=== PATIENT | female | born 1965 | race African-American/Black ===

== ENCOUNTER → 2019-10-25 15:30 | Outpatient (CLI) | payer OTHER, SELFPAY ==
--- NOTE | ~2019-10-25 | MM_ITS ---
EXAMINATION: MM screening tre BI w mónica HISTORY: Screening TECHNIQUE: Craniocaudal and mediolateral oblique 3-D tomosynthesis images were obtained and synthetic 2-D images were generated. CAD analysis was submitted and interpreted. COMPARISON: Comparison to multiple prior studies sequentially, with oldest reviewed study dated 06/09. BREAST PARENCHYMAL COMPOSITION: There are scattered areas of fibroglandular density. FINDINGS: There is no evidence of suspicious mass, calcification, or architectural distortion to sugg est malignancy in either breast. There has been no suspicious interval change. IMPRESSION: 1. No mammographic evidence of malignancy. 2. Recommend routine screening mammography in one year. BI-RADS Category 1: Negative Reviewed, dictated and finalized at location A.
== END ==
PROVIDERS: Visit Provider Nurse Practitioner
DX: Z12.31 Encounter for screening mammogram for malignant neoplasm of breast (principal)
CPT/HCPCS: 77063; 77067

== ENCOUNTER → 2020-11-16 12:16 | Outpatient (CLI) | payer OTHER, SELFPAY ==
--- NOTE | ~2020-11-16 | MM_ITS ---
EXAMINATION: MM screening [facility] BI w mónica HISTORY: Screening mammogram TECHNIQUE: Craniocaudal and mediolateral oblique 3-D tomosynthesis images were obtained and synthetic 2-D images were generated. CAD analysis was submitted and interpreted. COMPARISON: 10/25/2019, 07/06/2018, 07/04/2017 BREAST PARENCHYMAL COMPOSITION: There are scattered areas of fibroglandular density. FINDINGS: Stable bilateral breast masses are consistent with benign findings. There is no evidence of suspicious mass, calcification, or architectural distortion to suggest malignancy in either breast. There has been no suspicious interval change. IMPRESSION: 1. No mammographic evidence of malignancy. 2. Recommend routine screening mammography in one year. BI-RADS Category 2: Benign finding(s). Reviewed, dictated and finalized at location A.
== END ==
PROVIDERS: PCP Nurse Practitioner; Visit Provider Nurse Practitioner
DX: Z12.31 Encounter for screening mammogram for malignant neoplasm of breast (principal)
CPT/HCPCS: 77063; 77067

== ENCOUNTER → 2021-11-23 09:42 | Outpatient (CLI) | payer OTHER, SELFPAY ==
--- NOTE | ~2021-11-23 | MM_ITS ---
EXAMINATION: MM screening tre BI w mónica HISTORY: Screening mammogram TECHNIQUE: Craniocaudal and mediolateral oblique 3-D tomosynthesis images were obtained and synthetic 2-D images were generated. CAD analysis was submitted and interpreted. COMPARISON: 11/16/2020, 10/2019, 07/06/2018, 07/04/2017 bilateral screening mammogram examinations BREAST PARENCHYMAL COMPOSITION: The breasts are almost entirely fatty. FINDINGS: There is no evidence of suspicious mass, calcification, or architectural distortion to sugg est malignancy in either breast. There has been no suspicious interval change. IMPRESSION: 1. No mammographic evidence of malignancy. 2. Recommend routine screening mammography in one year. BI-RADS Category 1: Negative Reviewed, dictated and finalized at location B.
== END ==
PROVIDERS: PCP Nurse Practitioner; Visit Provider Nurse Practitioner
DX: Z12.31 Encounter for screening mammogram for malignant neoplasm of breast (principal)
CPT/HCPCS: 77063; 77067

== ENCOUNTER 2022-03-20 15:03 | Emergency (ER) | payer OTHER, SELFPAY ==
[2022-03-20 15:13] VITALS: BP 153/97; PULSE 101; RESP 16; TEMP 37.1; O2SAT 99
--- NOTE | 2022-03-20 15:25 | ED.EYEPROB ---
HPI - Eye Problem General Chief complaint: Eye Problems Stated complaint: Left Eye Irritation Time Seen by Provider: 03/20/22 15:15 Source: patient Mode of arrival: ambulatory Limitations: no limitations History of Present Illness HPI Narrative: Elvia is a 56-year-old female patient presenting to clinic today with complaints of left eye irritation x1 day. She reports the symptoms began this morning. She reports some burning with the eye but denies any known discharge coming from the eye. She denies any known injury. Related Data Home Medications Medication Instructions Recorded Confirmed amlodipine 10 mg tablet mg 03/20/22 blood sugar diagnostic (OneTouch 03/20/22 03/20/22 Ultra Test strips) dapagliflozin 10 mg-metformin ER PO 03/20/22 1,000 mg tablet,extended release 24hr (Xigduo XR) fluticasone 100 mcg-salmeterol 50 inhalation 03/20/22 mcg/dose blistr powdr for inhalation (Advair Diskus) lancets 33 gauge (OneTouch Delica 03/20/22 03/20/22 Plus Lancet) metformin 1,000 mg tablet mg 03/20/22 metoprolol tartrate 25 mg tablet mg 03/20/22 semaglutide 0.25 mg or 0.5 mg (2 mg subcut 03/20/22 mg/1.5 mL) subcutaneous pen injector (Ozempic) Allergies Allergy/AdvReac Type Severity Reaction Status Date / Time lisinopril Allergy Severe Anaphylactic Verified 03/20/22 15:24 Shock Penicillins Allergy Unknown Other Verified 03/20/22 15:24 Review of Systems Review of Systems: Pertinent positives per HPI. Patient denies any fever, chills, rash, headache, visual changes, dizziness, cough, runny nose, sore throat, shortness of breath, chest pain, palpitations, nausea, vomiting, diarrhea, constipation, abdominal pain, or any urinary issues. [facility] Family History Family History Sibling Patient's brother is in good health Family history of gynecological problem Mother Family history of arthritis Social History Social History (System 04/20/19 @ 13:08 by Guillermina Erickson) Smoking status: Never smoker Alcohol intake: never Comments At the time of my signature, I reviewed and agree with the nursing past medical, surgical, social, and family history. There is no relevant family history pertinent to the patient complaint. Exam Narrative: General: Well-developed, well nourished, in no apparent distress Head: Normocephalic, atraumatic Eyes: Pupils equally round and reactive to light bilaterally, EOM intact, right sclera and conjunctive clear, left sclera and conjunctiva injected and red ,no discharge, lid swelling to the left eye Ears: TMs intact and clear, ear canals clear, no drainage, grossly hearing normal. Nose: Nares patent, no discharge, no inflammation, no sinus tenderness. Mouth: Oropharynx without lesions or masses, good dentition, MMM. Neck: Supple, trachea midline, no enlargement of anterior or posterior cervical nodes, no thyroid masses or goiter palpable. Cardio: Regular rate and rhythm, s1 and s2 normal, no murmur appreciated. Resp: Clear to auscultation bilaterally anteriorly and posteriorly, no rhonchi, rales, wheezing or rubs Course Course Emergency Course: Portions of this record may have been created with voice recognition software. Level of Care: Express Care Visit Vital Signs Vital signs: Vital Signs Temperature 37.1 C 03/20/22 15:13 Pulse Rate 101 H 03/20/22 15:13 Respiratory Rate 16 03/20/22 15:13 Blood Pressure 153/97 H 03/20/22 15:13 Pulse Oximetry 99 03/20/22 15:13 Oxygen Delivery Room Air 03/20/22 15:13 Temperature 37.1 C 03/20/22 15:13 Pulse Rate 101 H 03/20/22 15:13 Respiratory Rate 16 03/20/22 15:13 Blood Pressure 153/97 H 03/20/22 15:13 Pulse Oximetry 99 03/20/22 15:13 Oxygen Delivery Room Air 03/20/22 15:13 Vital signs reviewed MDM - Eye Problem MDM Narrative Medical decision making narrative: At the time of visit che
== END 2022-03-20 15:30 | disposition home or self-care (01) ==
PROVIDERS: Emergency Provider Nurse Practitioner Family; PCP Nurse Practitioner
DX: H10.32 Unspecified acute conjunctivitis, left eye (principal); I48.91 Unspecified atrial fibrillation; E78.00 Pure hypercholesterolemia, unspecified; I10 Essential (primary) hypertension; K21.9 Gastro-esophageal reflux disease without esophagitis
CPT/HCPCS: 99213; G0463

== ENCOUNTER → 2022-11-27 12:20 | Outpatient (CLI) | payer OTHER, SELFPAY ==
--- NOTE | ~2022-11-27 | MM_ITS ---
EXAMINATION: MM screening tre BI w mónica HISTORY: Screening mammogram TECHNIQUE: Craniocaudal and mediolateral oblique 3-D tomosynthesis images were obtained and synthetic 2-D images were generated. CAD analysis was submitted and interpreted. COMPARISON: 11/23/2021, 11/16/2020, 07/06/2018 bilateral screening mammogram examinations BREAST PARENCHYMAL COMPOSITION: The breasts are almost entirely fatty. FINDINGS: There is no evidence of suspicious mass, calcification, or architectural distortion to sugg est malignancy in either breast. There has been no suspicious interval change. IMPRESSION: 1. No mammographic evidence of malignancy. 2. Recommend routine screening mammography in one year. BI-RADS Category 1: Negative Reviewed, dictated and finalized at location A.
--- NOTE | ~2022-11-27 | DEXA_ITS ---
Bone Density Report Name: MT TABOR Age: 57 Sex: Female Ethnicity: Black Date of : 1965 Indication: postmenopausal; screening for osteoporosis; asthma or emphysema; rheumatoid arthritis; Referring Provider: SUSAN, SARAHY Study: Bone densitometry was performed. Exam Date: November 27, 2022 Accession number: [id number] Bone Density: Region BMD T-score Z-score Classification AP Spine (L1-L4) 1.030 -0.2 0.1 Normal Femoral Neck (Left) 0.741 -1.0 -0.7 Normal Total Hip (Left) 0.816 -1.0 -0.8 Normal Femoral Neck (Right) 0.683 -1.5 -1.1 Osteopenia Total Hip (Right) 0.783 -1.3 -1.0 Osteopenia Total Hip Mean 0.800 -1.2 -0.9 Osteopenia World Health Organization criteria for BMD impression classify patients as: Normal (T-score at or above -1.0), Osteopenia (T-score between -1.0 and -2.5), or Osteoporosis (T-score at or below -2.5). 10-year Fracture Risk(1): Major Osteoporotic Fracture 3.6% Hip Fracture 0.3% Reported Risk Factors: [place] (Black), Neck BMD=0.683, BMI=33.0, rheumatoid arthritis (1) FRAX(R) Version 3.08. Fracture probability calculated for an untreated patient. Fracture probability may be lower if the patient has received treatment. Clinical Information Provided by Patient: Has rheumatoid arthritis Has used the following medications: Vitamin D, occasionally Calcium, MTV Has the following medical conditions: Asthma or Emphysema Patient maximum height was 65 Menopause Age: 56 No regular weight bearing exercise Drinks caffeinated beverages Onset of menses at age 14 Number of children 1 Impression: The patient has low bone mass, based on the Right Femoral Neck T-score. The patient has an estimated ten-year risk of hip fracture of 0.3% and an estimated ten-year risk of major fracture of 3.6%, based on the WHO FRAX algorithm. Discussion: BONE DENSITY IS LOW AT ONE OR MORE SKELETAL SITES. This patient's lowest T-score is low at one or more skeletal sites. It meets the World Health Organization's (WHO) criteria for ?low bone mass? (T-score between -1.0 and -2.5). The patient's 10-year risk of fracture as calculated by FRAX is less than the threshold where pharmacological therapy is recommended by the National Osteoporosis Foundation (NOF). However, all treatment decisions require clinical judgment and consideration of individual patient factors, including patient preferences, comorbidities, previous drug use, risk factors not captured in the FRAX model (e.g., frailty, falls, vitamin D deficiency, increased bone turnover, interval significant decline in bone density) and possible under or overestimation of fracture risk by FRAX. The patient should follow a healthful lifestyle (good nutrition with adequate calcium and vitamin D, and appropriate weight-bearing exercise).
== END ==
PROVIDERS: PCP Nurse Practitioner; Visit Provider Nurse Practitioner
DX: Z12.31 Encounter for screening mammogram for malignant neoplasm of breast (principal); Z78.0 Asymptomatic menopausal state; M85.851 Other specified disorders of bone density and structure, right thigh
CPT/HCPCS: 77063; 77067; 77080

== ENCOUNTER 2024-01-16 07:45 | Outpatient (CLI) | payer BC, SELFPAY ==
--- NOTE | ~2024-01-16 | MM_ITS ---
EXAMINATION: MM screening [facility] BI w mónica HISTORY: Screening mammogram TECHNIQUE: Craniocaudal and mediolateral oblique 3-D tomosynthesis images were obtained and synthetic 2-D images were generated. CAD analysis was submitted and interpreted. COMPARISON: 11/27/2022, 11/23/2021, 11/16/2020, 10/25/2019 BREAST PARENCHYMAL COMPOSITION:Not Dense. The breasts are almost entirely fatty FINDINGS: No suspicious mass, calcification, or architectural distortion are identified in either nash ast to suggest malignancy. There has been no suspicious interval change. IMPRESSION: No mammographic evidence of malignancy. Recommend routine screening mammography in one year. BI-RADS Category 1: Negative Reviewed, dictated and finalized at location .
== END 2024-01-16 07:46 | disposition home or self-care (01) ==
LOC: MICIMG 07:46
PROVIDERS: PCP Nurse Practitioner; Visit Provider Nurse Practitioner
DX: Z12.31 Encounter for screening mammogram for malignant neoplasm of breast (principal)
CPT/HCPCS: 77063; 77067

== ENCOUNTER 2024-09-13 12:53 | Outpatient (CLI) | payer BC, SELFPAY ==
--- NOTE | ~2024-09-13 | US_ITS ---
EXAM: PELVIC ULTRASOUND HISTORY: Post menopausal bleeding COMPARISON: None. FINDINGS: UTERUS: 6.1 x 3.2 x 3.3 cm. The uterus is anteverted and anteflexed. The endometrial complex measures 9 mm. A rounded focus of abnormal echogenicity is identified within the fundus of the uterus measuring 15 x 10 x 13 mm. This focus demonstrates primarily increased echogenicity and is inseparable from the end ometrial complex. Within the posterior wall of the body of the uterus is an additional rounded focus of mixed echogenic ity measuring 20 x 14 x 17 mm, likely an intramural fibroid. Within the anterior wall of the body of the uterus is an additional focus of mixed echogenicity measu ring 12 x 13 x 12 mm, consistent with an intramural fibroid. Within the lower body of the uterus is an additional focus of mixed echogenicity measuring 10 x 10 x 15 mm, consistent with an intramural fibroid. RIGHT OVARY: Despite prolonged interrogation, the right ovary was not visualized. LEFT OVARY: Despite prolonged interrogation, the left ovary was not visualized. No free fluid is identified within the pelvis. IMPRESSION: Fibroid uterus. Findings within the fundus of the uterus which are inseparable from the endometrial complex. Sonohyst erogram versus cross-sectional imaging (contrast-enhanced MRI of the pelvis) is suggested for further evaluation. Reviewed, dictated and finalized at location A. IMPRESSION: Fibroid uterus. Findings within the fundus of the uterus which are inseparable from the endomet rial complex. Sonohysterogram versus cross-sectional imaging (contrast-enhanced MRI of the pelvis) is suggested for further evaluation.
== END 2024-09-13 12:54 | disposition home or self-care (01) ==
LOC: MICIMG 12:54
PROVIDERS: PCP Nurse Practitioner; Visit Provider Nurse Practitioner
DX: N95.0 Postmenopausal bleeding (principal); D25.9 Leiomyoma of uterus, unspecified
CPT/HCPCS: 76830

== ENCOUNTER 2024-10-31 02:18 | Day surgery (SDC) | payer BC, SELFPAY ==
[2024-10-20 09:32] VITALS: BMI 31.4
--- NOTE | 2024-10-20 09:40 | PC.NURSE ---
Report to the Outpatient Waiting Room, entrance under the green pavilion located off [facility], at time __0745__ on date __10/31/24. Planned Procedure Time: _0945___.? Time changes happen often and if your time is changed the preop area will call you the afternoon before. - You and your visitor will be asked to self-screen and do not enter if you have any COVID symptoms. Please call surgeon if you need to reschedule. - A mask is optional within the hospital at this time. Patients may have clear liquids (water, carbonated beverages, clear teas, apple juice) until 3 hours prior to surgery with a maximum of 20 ounces. - No food from midnight until time of surgery and no smoking, or chewing tobacco (or any form of nicotine). No chewing gum, candy or mints. - Infants may have breast milk until 4 hours before surgery, infant formula 6 hours prior to surgery. - Children will be allowed to drink immediately following surgery.? If applicable, please bring a bottle or sippy cup to assist with drinking. Juice, water, soda, and popsicles are readily available.? For infants on formula, please bring formula the day of surgery.? Pacifiers are allowed. Take only the following medications with a SIP of water on the morning of surgery: ____AMLODIPINE, METOPROLOL, ADVAIR DO NOT STOP ANY OF YOUR OTHER PRESCRIPTION MEDICATIONS PRIOR TO SURGERY EXCEPT THE FOLLOWING Hold all vitamins and supplements for 3 days per anesthesiologist. Medications to discontinue per physician Date to take last dose Please no make-up, nail syrian, hairspray, perfume, deodorant, or body powder the day of surgery.? No jewelry (including any body piercings) or valuables the day of surgery, leave them at home.? Please take a shower or bath the night before, or the morning of, surgery with an antibacterial soap.? Wear comfortable, loose fitting clothing.? Children are encouraged to wear pajamas. - Jewelry must be removed prior to entering the operating room.? Rings and piercings that are not removed may be cut off. - The hospital will not accept responsibility for valuables.? - Please leave all valuables, including medications, at home the day of surgery. If you are going home after surgery, a licensed carry all driver must drive you home.? - NO public transportation without another adult if you receive anesthesia. - We recommend that an adult stay with you for 24 hours following discharge. - We also recommend that you do not drive, make important decision, drink alcoholic beverages, or take any drugs that were not prescribed by your health care provider for at least 24 hours after your discharge time. For Pediatric surgeries, we recommend two adults accompany the child home. Follow any additional instructions given to you from your surgeon. Telephone instructions given to __PATIENT___and asked if any additional questions and then verbalized understanding. Patient advised to call surgeon office or pre surgery nurse liaison [phone] if any additional questions.
--- OUTSIDE RECORDS SUMMARY | 2024-10-31 02:22 | XMS_ITS | Clinical Summary ---
Author Organization [facility] Address [address] [place] [address] Care Team Providers Care Station Operator Name Role Phone Emili Tavarez MD Primary Care Provider [phone] Source Comments [facility],non-owned Affiliates and Associated Physician Practices is amultiple site organization consisting of ambulatory clinics and hospital sitesin [place], [place], [place] and [place]. This disclosure is being madepursuant to the Care Everywhere program and may not contain all information available regarding this patient. Last updated 17.[facility] Allergies Active Allergy Reactions Criticality Noted Date Comments Lisinopril 02/12/2017 Penicillins 02/12/2017 Medications * Be aware that medications may not be up to date on this document. Alwaysverify current medications with the patient. naproxen (NAPROSYN) 500 MG tablet Take 1 tablet by mouth 2 times daily as needed for Pain 20 tablet 02/13/2017 Active HYDROcodone-acet aminophen (NORCO) 5-325 MG tablet Take 1 tablet by mouth every 6 hours as needed for Pain 10 tablet 02/13/2017 Active Social History Tobacco Use Types Packs/Day Years Used Date Smoking Tobacco: Never Smokeless Tobacco: Never Alcohol Use Standard Drinks/Week Comments No 0 (1 standard drink = 0.6 oz pur e alcohol) Comments No Sex and Gender Information Value Date Recorded Sex Assigned at Not on file Legal Sex Female 6:24 AM [employer] Gender Identity Not on file Sexual Orientation Not on file Last Filed Vital Signs Vital Sign Reading Time Taken Comments Blood Pressure 130/87 02/19/2017 9:38 AM JEWELRY POLISHER Pulse 88 02/19/2017 9:38 AM JEWELRY POLISHER Temperature 36.9 C (98.4 F) 02/19/2017 9:38 AM JEWELRY POLISHER Respiratory Rate 14 02/19/2017 9:38 AM JEWELRY POLISHER Oxygen Saturation 97% 02/19/2017 9:38 AM JEWELRY POLISHER Inhaled Oxygen Concentration - - Weight 88.5 kg (195 lb) 02/19/2017 7:53 AM JEWELRY POLISHER Height 165.1 cm (5' 5) 02/19/2017 7:53 AM JEWELRY POLISHER Body Mass Index 32.45 02/19/2017 7:53 AM JEWELRY POLISHER Plan of Treatment Health Maintenance Due Date Last Done Comments COLOGUARD (AGES 45-75) - COLON CA SCREENING 1965 COLON MONITORING 1965 COLONOSCOPY - COLON CA SCREENING 1967 CT COLONOGRAPHY - COLON CA SCREENING 1965 Colorectal Cancer Screening 1965 FIT - COLON CA SCREENING 1965 FLEX SIG - COLON CA SCREENING 1965 MAMMOGRAM 1965 HIV SCREENING 11/16/1982 HEPATITIS C SCREENING 11/12/1985 DTAP/TDAP/TD VACCINES (1 - Tdap) 11/16/1986 HEPATITIS B VACCINE (1 of 3 - 19+ 3-dose series) 11/16/1986 DIABETES-STATIN 2007 DIABETES-SERUM CREATININE 12/31/20152014, 07/08/2014, 08/11/2013, Additional history exists DIABETES-FOOT EXAM WITH MONOFILAMENT 06/22/2017 DIABETES-HGB A1C 06/22/2017 12/30/2014, 10/2014, 07/08/2014, Additional history exists PNEUMOCOCCAL VACCINE 50+ (1 of 1 - PCV) 11/16/2017 ZOSTER VACCINE (1 of 2) 11/16/2017 COVID-19 VACCINE ( - season) 2023 DEPRESSION SCREENING 03/23/2024 DIABETES - URINE PROTEIN SCREENING 03/23/2024 07/08/2014, 08/11/2013 INFLUENZA VACCINE (#1) 2024 01/03/2010 HIB VACCINE Aged Out No longer eligi ble based on patient's age to complete this topic HPV VACCINE Aged Out No longer eligi ble based on patient's age to complete this topic MENINGOCOCCAL (Group B) VACCINE SHARED DECISION-MAKING Aged Out No longer eligible based on patient's age to complete this topic MENINGOCOCCAL GROUPS A/C/Y/W VACCINE Aged Out No longer eligible based on patient's age to complete this topic Procedures Procedure Name Priority Date/Time Associated Diagnosis Comments COMPREHENSIVE METABOLIC PANEL Routine 12/30/2014 10:31 AM CDT HEMOGLOBIN A1C Routine 12/30/2014 10:31 AM CDT MICROALB/CREAT RATIO URINE RANDOM PANEL Routine 07/08/2014 7:45 AM CDT from Last 3 Months or Most Recently Relevant to Health Maintenance Results * (ABNORMAL) HEMOGLOBIN A1C (12/30/2014 10:31 AM CDT) Hemoglobin A1c 6.4(H) 4.8 - 5.6 % [facility] ([facility]) Comment: Increased risk for diabetes: 5.7 - 6.4 Diabetes: >6.4 Glycemic control for adults with diabetes: <7.0 Blood specimen (specimen) BLOOD SPECIMEN / Unknown 12/30/2014 10:31 AM CDT 12/30/2014 12:40 PM CDT [facility]ative [facility]) - 12/31/2014 7:09 AM CDT Performed at: [address] [place] [address] [address] [place], [place] [id number] Certified Residential Medication Aide: Skyler Figueroa PhD, Phone: [phone] us Historical Provider LAB - CHEMISTRY ORDERABLE S Final Result [facility] ([facility]) [address] [place] [address], [facility] * COMPREHENSIVE METABOLIC PANEL (12/30/2014 10:31 AM CDT) Glucose 97 65 - 99 mg/dL [facility] ([facility]) BUN 9 6 - 24 mg/dL [facility] ([facility]) Creatinine 0.82 0.57 - 1.00 mg/dL [facility] ([facility]) eGFR non- 85 >59 mL/min/1.7 3 [facility] (H) eGFR 99 >59 mL/min/1.7 3 [facility] (H) BUN/Creatinine Ratio 11 9 - 23 [facility] ([facility]) Sodium 140 134 - 144 mmol/L [facility] ([facility]) Potassium 4.1 3.5 - 5.2 mmol/L [facility] ([facility]) Chloride 102 97 - 108 mmol/L [facility] ([facility]) CO2 23 18 - 29 mmol/L [facility] ([facility]) Calcium 9.3 8.7 - 10.2 mg/dL [facility] ([facility]) Protein Total 7.0 6.0 - 8.5 g/dL [facility] (H) Albumin 4.3 3.5 - 5.5 g/dL [facility] ([facility]) Globulin Total 2.7 1.5 - 4.5 g/dL [facility] ([facility]) Albumin/Globulin Ratio 1.6 1.1 - 2.5 [facility] ([facility]) Bilirubin Total 0.3 0.0 - 1.2 mg/dL [facility] ([facility]) Alkaline Phosphatase 103 39 - 117 IU/L [facility] ([facility]) AST 15 0 - 40 IU/L [facility] ([facility]) ALT 14 0 - 32 IU/L [facility] ([facility]) Blood specimen (specimen) BLOOD SPECIMEN / Unknown 12/30/2014 10:31 AM CDT 12/30/2014 12:40 PM CDT Narrative [facility] ([facility]) - 12/31/2014 7:09 AM CDT Performed at: [address] [place] [address] [address] [place], [place] [id number] Certified Residential Medication Aide: Skyler Figueroa PhD, Phone: [phone] us Historical Provider LAB - CHEMISTRY ORDERABLE S Final Result [facility] ([facility]) [address] [place] [address] * (ABNORMAL) MICROALB/CREAT RATIO URINE RANDOM PANEL (07/08/2014 7:45 AM CDT) Creatinine Urine 325.1(H) 15.0 - 278.0 mg/dL [facility] ([facility]) Microalbumin Random Urine 23.6(H) 0.0 - 17.0 ug/mL [facility] ([facility]) Urine Albumin/Creatinin e Ratio 7.3 0.0 - 30.0 mg/g creat [facility] ([facility]) Urine specimen (specimen) URINE / Unknown 07/08/2014 7:45 AM CDT 07/08/2014 12:48 PM CDT Narrative [facility] ([facility]) - 07/09/2014 7:10 AM CDT Performed at: [facility] - [facility] [address] [place], [place] [id number] Certified Residential Medication Aide: Anuj Morse PhD, Phone: [phone] us Historical Provider LAB - URINE CHEMISTRY ORD ERABLES Final Result Performing Organization Address City/State/[facility] Co de Phone Number [facility] ([facility]) [address] [place] [address] from Last 3 Months or Most Recently Relevant to Health Maintenance Insurance [employer] Care Teams Station Operator Relationship Specialty Start Date End Date Emili Tavarez MD [address] [place], [place] [address] PCP - General Internal Medicine 02/19/17
--- OUTSIDE RECORDS SUMMARY | 2024-10-31 02:22 | XMS_ITS | Continuity of Care Document ---
Author Organization [facility] Address [address] [place] [address] Phone Care Team Providers Care Supervising Appraiser Name Role Phone Chetna Saleem MD Unavailable Unavailable Allergies, Adverse Reactions, Alerts Substance Reaction Status Criticality lisinopril Angioedema(severe) Active No Inform ation penicillin G Skin Active No Information Medications Medication Instructions Dosage Effective Dates (start - stop) Status Comments hydrochlorothiazide 25 mg Tab take 1 tablet (25MG) by oral route every day 25 MG - Active aspirin 81 mg Tab take 1 tablet (81MG) by oral route every day 81 MG - Active Advance Directives Directive Yes / No Effective Date File Name No Information Encounters Encounter Description Practice Location Reason(s) For Visit Diagnoses Date Provider Providers Copied on Encounter [facility], [address], [place], [place], [address] , tel: [phone] [facility] No Information 1 Harper Basilio. [address], [id number]. [phone] [facility], [address], [place], [place], [address] , [place] tel: [phone] [facility] No Information 2 Harper Basilio. [address], [id number]. [phone] [facility], [address], [place], [place], [address] , tel: [phone] [facility] Obesity, unspecifiedGOUT NOSUnspecified essential hypertensionLUMBAGO Obesity, unspecifiedFamily history of diabetes mellitusLONG-TERM USE MEDS NEC 1 Harper Basilio. [address] [place] [address], [place] [address], [place], [place], [address]. tel:[phone] Referring Provider: Chetna Bueno, [address] [place] [address], [place], [address] . tel:[phone] [facility], [address], [place], [place], [address] , tel: [phone] [facility] Unspecified essential hypertensionEsophag eal refluxGout, unspecifiedAllergic rhinitis, cause unspecified 1 Harper Basilio. [address] [place] [address], [place], [place], [address]. [phone] Referring Provider: Chetna Bueno, [address] [place] [address], [place], [address] . tel:[phone] [facility], [address], [place], [place], [address] , [place] tel: [phone] [facility] HYPERTENSION NOSVACCIN FOR INFLUENZALUMBAGO 0 Harper Basilio. [address] [place] [address], [place], [place], [address]. [phone] [facility], [address], [place], [place], [address] , [place] tel: [phone] [facility] SCREEN MAL QHIO-VJRFZHOUSJ-AST M USE MEDS NECROUTINE MEDICAL EXAMANEMIA NOS -201 0 Harper Basilio. [address] [place] [address], [place], [place], [address]. tel:[phone] [facility], [address], [place], [place], [address] , tel: [phone] [facility] BENIGN HYPERTENSION 2-200 9 Conversion Doctor. [address] [facility], [place], [address], [place]. [facility], [address], [place], [place], [address] , tel: [phone] [facility] ELEV BL PRES W/O HYPERTNSKIN SENSATION DISTURB 2-200 8 Harper Basilio. [facility] [place], [place] [address], [place], [place], [address]. tel:[phone] [facility], [address], [place], [place], [address] , tel: [phone] [facility] DISORDERS OF UTERUS NECALLERGIC RHINITIS NOSOBESITY NOSCONTRACEPT PILL SURVEILL 6-200 6 Harper Basilio. [address] [place] [address], [place] [address], [place], [place], [address]. tel:[phone] [facility], [address], [place], [place], [address] , tel: [phone] [facility] ESOPHAGEAL REFLUXJOINT PAIN-L/LEGGOUT NOS 7-200 5 Harper Basilio. [facility] [place] [address], [place], [place], [address]. tel:[phone] [facility], [address], [place], [place], [address] , tel: [phone] [facility] VACCINATION FOR TD-DT 4-200 5 Harper Basilio. [address] [place] [address], [place], [place], [address]. tel:[phone] Family History Family Member Type Diagnosis Age At Onset No Information Immunizations Vaccine Date Status Comments Flu (split) (3 yrs or older) administered Source: New Immunization Record 01610 - Influenza administered Source: So urce Unspecified 92527 - TD administered Source: Source Unspecified 29795 - Hepatitis_B administered Source: Source Unspecified Payers Payer name Insurance type Covered democrat ID Authoriza tion(s) [facility] [id number] Social History Type Description Quantity Date Captured Comments Alcohol Use Details Unknown Caffeine Use Details Unknown Tobacco Use Status No Information Smoking Status No Information Sex Female Chief Complaint And Reason For Visit No Information Reason For Referral Reason For Referral No Information History Of Present Illness Encounter Date Complaint History Of Prese nt Illness No Information Functional Status Date Functional Assessmen t No Information Instructions Date Instruction Additional Infor mation No Information Assessments Type Assessment Date No Information Patient Care Teams Name Effective Dates (start - stop) Status Members No Information
--- OUTSIDE RECORDS SUMMARY | 2024-10-31 02:22 | XMS_ITS | Encounter Summary ---
Author Organization [facility] Address [address] [place] [address] Phone Care Team Providers Care Amplifier Mechanic Name Role Phone Lilly Boone GUNITE NOZZLE OPERATOR Primary Care Provider [phone] Encounter Details Date Type Department Care Team (Late st Contact Info) Description 07/05/2021 Orders Only [facility]R [phone] Scanning, Provider Social History Tobacco Use Types Packs/Day Years Used Date Smoking Tobacco: Never Smokeless Tobacco: Never Alcohol Use Standard Drinks/Week Comments Never 0 (1 standard drink = 0.6 oz pur e alcohol) AUDIT-C Answer Date Recorded Q1: How often do you have a drink containing alc ohol? 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 Author CCM Chronic Pain Care Plan Chronic Care Management No Glenna Merida V. RN Note: Problem: Chronic Pain Goals: 1. Minimize further functional decline 2. Maximize quality of life 3. Control pain Strategies: - Activity/exercise program recommendation - Conservative stepwise pain medicine strategy with multi-disciplinary approach - Recommend healthy lifestyle strategies and compensatory methods as needed Reduce the likelihood of falling Lifestyle Glenna Ferro V., RN Note: Below are four things you can do to prevent falls: Begin an exercise program to improve your leg strength & balance Ask your doctor or pharmacist to review your medicines Get annual eye check-ups & update your eyeglasses Make your home safer by: Removing clutter & tripping hazards Putting railings on all stairs & adding grab bars in the bathroom Having good lighting, especially on stairs Contact your local community or [facility] for information on exercise, fall prevention programs, or options for improving home safety. documented as of this encounter Procedures Procedure Name Priority Date/Time Associated Diagnosis Comments SCAN - RADIOLOGY/IMAGING 07/05/2021 documented in this encounter Results * SCAN - RADIOLOGY/IMAGING (07/05/2021) Anatomical Region Laterality Modality Other us Provider Scanning Final Result documented in this encounter Visit Diagnoses Not on filedocumented in this encounter Additional Health Concerns Infection Onset Date Last Indicated Resolved Time COVID: Suspected 10/18/2022 10/18/2022 10/18/2022 11:19 AM CDT COVID: Suspected 10/18/2022 10/18/2022 10/18/2022 11:18 PM CDT COVID: Suspected 04/15/2023 04/15/2023 04/15/2023 6:14 PM VESSEL SCRAPPER HELPER Influenza, adult 04/15/2023 04/15/2023 04/22/2023 3:05 AM VESSEL SCRAPPER HELPER documented as of this encounter Care Teams Amplifier Mechanic Relationship Specialty Start Date End Date Lilly Boone NP PCP - General Nurse Practitioner 10/05/19 documented as of this encounter
--- OUTSIDE RECORDS SUMMARY | 2024-10-31 02:22 | XMS_ITS | Encounter Summary ---
Author Organization [facility] Address [address] [place] [address] Phone Care Team Providers Care Speech And Hearing Director Name Role Phone Lilly Boone ACID ADJUSTER Primary Care Provider [phone] Encounter Details Date Type Department Care Team (Late st Contact Info) Description 07/02/2021 Orders Only [facility]R [phone] Scanning, Provider Social History Tobacco Use Types [...] on file Legal Sex Female 1:41 PM MEDICAL PHYSICS PROFESSOR Gender Identity Not on file Sexual Orientation Not on file 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 documented as of this encounter Procedures Procedure Name Priority Date/Time Associated Diagnosis Comments SCAN - RADIOLOGY/IMAGING 07/02/2021 documented in this encounter Results * SCAN - RADIOLOGY/IMAGING (07/02/2021) Anatomical Region Laterality Modality Other us Provider Scanning Edited Result - Final documented in this encounter Visit Diagnoses Not on filedocumented in this encounter Additional Health Concerns Infection Onset Date Last Indicated Resolved Time COVID: Suspected 10/18/2022 10/18/2022 10/18/2022 11:19 AM CDT COVID: Suspected 10/18/2022 10/18/2022 10/18/2022 11:18 PM CDT COVID: Suspected 04/15/2023 04/15/2023 04/15/2023 6:14 PM MEDICAL PHYSICS PROFESSOR Influenza, adult 04/15/2023 04/15/2023 04/22/2023 3:05 AM MEDICAL PHYSICS PROFESSOR documented as of this encounter Care Teams Speech And Hearing Director Relationship Specialty Start Date End Date Lilly Boone NP PCP - General Nurse Practitioner 10/05/19 documented as of this encounter
--- OUTSIDE RECORDS SUMMARY | 2024-10-31 02:23 | XMS_ITS | Encounter Summary ---
Author Organization [facility] Address [address] [place] [address] Care Team Providers Care Hydraulic Boom Operator Name Role Phone Lilly Boone Primary Care Provider [phone] Denis Wilder MD Unavailable [phone] Encounter Details Date Type Department Care Team (Latest Contact Info) Description 10/18/2024 Results Follow-Up [facility] - [place] [address] [place] [address] Lilly Boone APNP [address] [place] [address] HEMOGLOBIN, GLYCOSYLATED Social History Tobacco Use Types Packs/Day Years Used Date Smoking Tobacco: Never Passive Smoke Exposure: Past Smokeless Tobacco: Never Alcohol Use Standard Drinks/Week Comments Never 0 (1 standard drink = 0.6 oz pur e alcohol) AUDIT-C Answer Date Recorded Frequency of Alcohol Consumption Never 04/12/2018 Average Number of Drinks Not on file 019 Frequency of Binge Drinking Not on file 03/24 PHQ-2 Answer Date Recorded Patient Health Questionnaire-2 Score 0 06/13/2024 Comments No Sex and Gender Information Value Date Recorded Sex Assigned at Female 04/16/2024 10:05 AM SPRING TACKER Legal Sex Female 11:50 AM CDT Gender Identity Not on file Sexual Orientation Not on file documented as of this encounter Progress Notes * ROBIN Israel - 10/18/2024 5:07 PM CDT A1c has improved to 8.0, goal is less than 7. Repeat in 2 months. documented in this encounter Plan of Treatment Upcoming Encounters Date Type Department Care Team (Latest Contact Info) Description 12/19/2024 7:40 AM CDT Office Visit [facility] - [place] [address] [place] [address] Lilly Boone APNP [address] [place] [address] 01/12/2025 10:00 AM CDT Office Visit [facility], [place] [address] [place] [address] Yung Barnes MD Three [facility] [address] [place] [address] 05/25/2025 8:00 AM SPRING TACKER Hospital Encounter [facility] [place] [address] Rush Ferrari MD 3 [facility] [address] [place] [address] 05/25/2025 8:00 AM SPRING TACKER - 05/25/2025 8:30 AM SPRING TACKER Surgery [facility] Endo/[place] [address] Rush Ferrari MD 3 [facility] [address] [place] [address] COLONOSCOPY SCREENING Scheduled Procedures Name Priority Associated Diagnoses Date/Ti me COLONOSCOPY SCREENING Colon cancer screening 05/25/2025 8:00 AM SPRING TACKER documented as of this encounter Goals Goal Patient Goal Type Associated Problems Recent Progress Patient-Stated? Author Autogenerat ed Goal Care Plan Autogenerated Problem No Chayo Cowan documented as of this encounter Visit Diagnoses Not on filedocumented in this encounter Additional Health Concerns Active Problems Noted Date Diagnosed Date Autogenerated Problem 10/12/2024 Assessment Noted Time PHQ-9 Depression Total Score: 1 12/16/19 8:16 AM CDT documented as of this encounter Care Teams Hydraulic Boom Operator Relationship Specialty Start Date End Date Lilly Boone APNP [address] [place] [address] PCP - General NURSE PRACTITIONER 04/09/18 Denis Wlider MD 3 [facility] [address] [place] [address] [place] Rat Exterminator CARDIOVASCULAR DISEASE 04/09/18 documented as of this encounter
--- OUTSIDE RECORDS SUMMARY | 2024-10-31 02:23 | XMS_ITS | Encounter Summary ---
Author Organization [facility] Address [address] [place] [address] Care Team Providers Care Lead Welder Name Role Phone Lilly Boone Primary Care Provider [phone] Denis Wilder MD Unavailable [phone] Encounter Details Date Type Department Care Team (Late st Contact Info) Description 03/01/[address] [employer] [address] [facility] - [place] [address] [place] [address] Lilly Boone APNP [address] [place] [address] RE: Test Results Social History Tobacco Use Types Packs/Day Years Used Date Smoking Tobacco: Never Smokeless Tobacco: Never Alcohol Use Standard Drinks/Week Comments No 0 (1 standard drink = 0.6 oz pur e alcohol) AUDIT-C Answer Date Recorded Frequency of Alcohol Consumption Never 04/12/2018 Average Number of Drinks Not on file 019 Frequency of Binge Drinking Not on file 03/24 PHQ-2 Answer Date Recorded PHQ-2 Score - If the patient scores above 3, please move on to questions 3-9 0 09/16/2019 Comments No Sex and Gender Information Value Date Recorded Sex Assigned at Female 04/16/2024 10:05 AM PREFITTER Legal Sex Female 11:50 AM CDT Gender Identity Not on file Sexual Orientation Not on file documented as of this encounter Plan of Treatment Upcoming Encounters Date Type Department Care Team (Latest Contact Info) Description 12/19/2024 7:40 AM CDT Office Visit [facility] - [place] [address] [place] [address] Lilly Boone APNP [address] [place] [address] 01/12/2025 10:00 AM CDT Office Visit [facility] [place] [address] [place] [address] Yung Barnes MD Three [facility] [address] [place] [address] 05/25/2025 8:00 AM PREFITTER Hospital Encounter [facility] [place] [address] Rush Ferrari MD 3 [facility] [address] [place] [address] 05/25/2025 8:00 AM PREFITTER - 05/25/2025 8:30 AM PREFITTER Surgery [facility] Endo/[place] [address] Rush Ferrari MD 3 [facility] [address] [place] [address] COLONOSCOPY SCREENING Scheduled Procedures Name Priority Associated Diagnoses Date/Ti me COLONOSCOPY SCREENING Colon cancer screening 05/25/2025 8:00 AM PREFITTER documented as of this encounter Visit Diagnoses Not on filedocumented in this encounter Additional Health Concerns Assessment Noted Time PHQ-9 Depression Total Score: 0 09/16/19 20 3:42 PM CDT documented as of this encounter Care Teams Lead Welder Relationship Specialty Start Date End Date Lilly Boone APNP [address] [place] [address] PCP - General NURSE PRACTITIONER 04/09/18 Denis Wilder MD 3 [facility] [address] [place] [address] [place] Shade Cutter CARDIOVASCULAR DISEASE 04/09/18 documented as of this encounter
--- OUTSIDE RECORDS SUMMARY | 2024-10-31 02:23 | XMS_ITS | Clinical Summary ---
Author Organization [facility] Address [address] [place] [address] Care Team Providers Care Team Psychologist Name Role Phone Lilly Boone NP Primary Care Provider [phone] Allergies Active Allergy Reactions Criticality Noted Date Comments Venom-Honey Bee Anaphylaxis High 11/09/2019 Lisinopril Angioedema High 02/12/2017 Magnesium Hives Medium 05/13/2019 Penicillins Hives Medium 02/12/2017 [place] Swelling Medium 11/10/2019 New allergy Medications metoprolol tartrate (LOPRESSOR) 25 mg immediate release tabletIndication s:hypertension,h eart rate Take 1 tablet (25 mg total) by mouth 2 (two) times a day 0 Active acetaminophen 500 mg capsule Take 2 capsules (1,000 mg total) by mouth every 6 (six) hours 30 tablet 0 Active OneTouch Ultra Blue Test Strip strip USE 1 STRIP TO CHECK GLUCOSE ONCE DAILY 0 Active amLODIPine (NORVASC) 10 mg tablet 1 Active EPINEPHrine 0.3 mg/0.3 mL auto-injection syringe Inject 0.3 mL (0.3 mg total) into the muscle as instructed as needed 1 Active Advair Diskus 100-50 mcg/dose diskus inhaler INHALE 1 DOSE BY MOUTH TWICE DAILY 2 Active metFORMIN (GLUCOPHAGE) 1,000 mg tablet Take 1 tablet (1,000 mg total) by mouth 2 Active albuterol HFA (PROVENTIL HFA,VENTOLIN HFA,PROAIR HFA) 90 mcg/actuation inhalerIndicatio ns:Bronchospasm Prevention Inhale 2 puffs every 6 (six) hours as needed for wheezing 1 each 3 Active fluticasone propionate (FLONASE) 50 mcg/actuation nasal sprayIndications :Upper respiratory tract infection, unspecified type Administer 2 sprays into each nostril daily 1 each 3 Active naproxen (NAPROSYN) 500 mg tablet Take 1 tablet (500 mg total) by mouth 2 (two) times a day with meals 30 tablet 4 Active methylPREDNISolo ne (MEDROL DOSEPACK) 4 mg Dosepack Take as directed on package 1 packet 5 Active Active Problems Problem Noted Date Diagnosed Date Sudden right hearing loss 06/14/2024 Assessment & Plan (06/14/2024 8:07 PM CDT): She has significant right-sided sensorineural hearing loss which I think is probably due to labyrinthitis. She did have some improvement in her hearing with the oral steroids that were prescribed. I talked with her quite a bit about this. I think she would benefit from intratympanic steroid injection and after talking with her further about this she would like to go ahead and pursue it. We did a steroid injection today. She tolerated well. I am recommending an MRI scan to further evaluate for possible 8th nerve tumor. She would like to pursue that also. The plan is for a follow up in 1-2 weeks with a repeat audiogram and possible 2nd injection. Ear fullness, right 05/16/2024 Assessment & Plan (06/14/2024 8:05 PM CDT): Unchanged Assessment & Plan (05/16/2024 9:09 AM BOTTOM LINER): She has a normal ear exam. I talked with her about this. I am going to treat her with a steroid pack and see her back in a month. We will do an audiogram at that time. Peripheral vertigo involving right ear 5 Assessment & Plan (06/14/2024 8:06 PM CDT): This has improved. She states lasted about a week. Think she probably has suffered from labyrinthitis and the vestibular symptoms are likely resolved or at least compensated. Assessment & Plan (05/16/2024 9:10 AM BOTTOM LINER): I think she may have Meniere's disease and I talked with her about this. I recommended avoiding caffeine and salt. I am going to give her a steroid pack to take and see her back in a month. Hearing test at that time. She understands. She has no questions. Upper respiratory tract infection 10/18/2022 Assessment & Plan (10/18/2022 11:38 AM CDT): Rapid covid and flu negative, PCR pending Vital signs stable, no acute distress, lungs CTAB Tessalon prn for cough Refilled albuterol inhaler Flonase as directed Hx of asthma and states she does not tolerate prednisone, hx of possible DKA after prednisone Tylenol or Ibuprofen for aches, pains. Take per package directions Antihistamines like Claritin or Zyrtec as needed for drainage. Take per package directions Coricidin as directed on package Increase fluids, especially sugar-free decaffeinated ones (water) Follow up with PCP if symptoms persist, ER if worsening including shortness of breath or chest pain Obesity 10/17/2021 Other fatigue 08/09/2021 S/P cervical spinal fusion 03/26/2020 HTN (hypertension) 01/11/2020 Type 2 diabetes mellitus 01/11/2020 Herniation of cervical inter vertebral disc with radiculopathy 12/15/2019 Overview (12/15/2019): Added automatically from request for surgery [id number] Spinal stenosis in cervical region 12/15/2019 Overview (12/15/2019): Added automatically from request for surgery [id number] Low back pain 01/03/2010 Gout 01/27/2005 Encounters Date Type Department Care Team Description 10/28/2024 Telephone [facility] Otolaryngology [address] [address] YesseniaMarilynMadeleine MRI results from Last 3 Months Immunizations Immunization Administration Dates Next Due DTP 04/26/1993, 0,04/05/1968,03/03,01/27/1968 Influenza, Quadrivalent, Spl it, Preservative Free, Intramuscular 01/13/2020 Influenza, Trivalent, IM (MDV) 01/30/2014 Influenza, Unspecified 01/30/2014 MMR 09/30/2018, 9,04/26/1993,11/15 MMRV 04/26/1993,11/15/1968 OPV 10/22/1969, 9,03/03/1968,01/26 OPV, Unspecified 10/22/1969, 9,03/03/1968,01/26 Pfizer SARS-CoV-2 Monovalent Vaccination (12+ Yrs) PURPLE 07/09/2020,06/17/2020 Tdap 08/23/2018 Surgical History Surgery Date Site/Laterality Comments CHOLECYSTECTOMY TONSILLECTOMY ENDOMETRIAL ABLATION COLONOSCOPY ANTERIOR CERVICAL DISCECTOMY W/ FUSION SPINAL FUSION 12/22/2019 - 01/21/2020 C45, C56 ACDF/I Medical History Medical History Date Comments Anemia Asthma Gout Hypertension Type 2 diabetes mellitus SVT (supraventricular tachycardia) Vitamin D deficiency GERD (gastroesophageal reflux disease) Cervical spinal stenosis Herniated cervical disc Arthritis 2021 Ear problems Diabetes (HCC) HL (hearing loss) Family History Medical History Relation Name Comments Cancer Father's Sister Cancer Mother's Brother Kidney failure Mother's Brother Anesthesia problems Neg Hx Relation Name Status Comments Father's Sister Mother's Brother Social History Tobacco Use Types Packs/Day Years Used Date Smoking Tobacco: Never Smokeless Tobacco: Never Comments:None Alcohol Use Standard Drinks/Week Comments Never 0 (1 standard drink = 0.6 oz pur e alcohol) AUDIT-C Answer Date Recorded Q1: How often do you have a drink containing alc ohol? Never 01/04/2020 Average Number of Drinks Not on file 020 Frequency of Binge Drinking Not on file 12/21 PHQ-2 Answer Date Recorded PHQ-2 Total Score (If total score is 3 or more points, staff should administer the PHQ-9) 0 10/18/2022 Personal Safety Answer Date Recorded Have you ever been in or are you currently in a harmful physical or emotional relationship or is someone making you feel afraid or unsafe? Denies 12/05/2023 Comments No Sex and Gender Information Value Date Recorded Sex Assigned at Not on file Legal Sex Female 1:41 PM BOTTOM LINER Gender Identity Not on file Sexual Orientation Not on file Occupation Industry Job Start Date Job End Date [employer] Not on file Not on file Not o n file Obstetrics History Last Filed Vital Signs Vital Sign Reading Time Taken Comments Blood Pressure 134/80 03/09/2024 5:45 PM BOTTOM LINER Pulse 94 03/09/2024 5:45 PM BOTTOM LINER Temperature 36.6 C (97.8 F) 03/09/2024 5:45 PM BOTTOM LINER Respiratory Rate 18 06/14/2024 2:59 PM CDT Oxygen Saturation 99% 03/09/2024 5:45 PM BOTTOM LINER Inhaled Oxygen Concentration - - Weight 88 kg (194 lb) 06/14/2024 2:59 PM CDT Height 162.6 cm (5' 4) 06/14/2024 2:59 PM CDT Body Mass Index 33.3 06/14/2024 2:59 PM CDT Plan of Treatment Health Maintenance Due Date Last Done Comments Albumin Creatinine Ratio, Urine 1967 Breast Cancer Screening-Mammogram 1967 Cervical Cancer Screening 1967 Colon Cancer Screening-Colonoscopy 1967 Hepatitis C Screening 1967 Dilated Eye Exam 1967 Foot Exam 1967 Hepatitis B Screening 11/16/1985 Regular Well Visit/Exam 18-64 11/16/1985 Pneumococcal vaccine <65 (1 of 2 - PCV) 11/16/1986 Zoster Vaccine (1 of 2) 11/16/2017 Hemoglobin A1C 07/04/2020 01/04/2020, 09/07/2017 eGFR 06/16/2023 06/15/2022, 07/, 01/04/2020 Depression Screening 10/19/2023 10/18/2022 Covid-19 Vaccine (3 - 2023-2 5 season) 2023 07/09/2020, 06/17/2020 Influenza Vaccine (#1) 2024 , 01/13/2020, 01/30/2014, Additional history exists Lipid Panel 06/13/2025 06/13/2024, 11/22, 11/28/2021, Additional history exists DTaP/Tdap/Td Vaccine (7 - Td or Tdap) 08/23/2028 08/23/2018, 04/26/1993, 10/22/1969, Additional history exists Goals Goal Patient Goal Type Associated Problems Recent Progress Patient-Stated? Author CCM Chronic Pain Care Plan Chronic Care Management No Glenna Merida RN Note: Problem: Chronic Pain Goals: 1. Minimize further functional decline 2. Maximize quality of life 3. Control pain Strategies: - Activity/exercise program recommendation - Conservative stepwise pain medicine strategy with multi-disciplinary approach - Recommend healthy lifestyle strategies and compensatory methods as needed Reduce the likelihood of falling Lifestyle No Glenna Merida RN Note: Below are four things you [...] on stairs Contact your local community or senior center for information on exercise, fall prevention programs, or options for improving home safety. Medical Devices Implanted Type Area Account Installer Device Identifier Shelf Expiration Date Model / Serial / Lot Musculoskeletal Transplant [id number] Frozen Spine 7d Lordotic Trapezoid Spacer Allograft - [id number] - [id number] Implanted:Qty: 1 on 01/12/2020 by Bruno Moulton MD at [facility] Bone N/A: Spine Cervical Musculoskeletal Transplant 08/13/2022 [id number] / [id number] / Musculoskeletal Transplant [id number] Frozen Spine 7d Lordotic Trapezoid Spacer Allograft - [id number] - [id number] Implanted:Qty: 1 on 01/12/2020 by Bruno Moulton MD at [facility] Bone N/A: Spine Cervical Musculoskeletal Transplant 12/12/2023 [id number] / [id number] / [employer] [id number] 4mm 12mm Fix Spine Screw Bone - S. - [id number] Implanted:Qty: 6 on 01/12/2020 by Bruno Moulton MD at [facility] Screw N/A: Spine Cervical [employer] 01/12/2020 [id number] / . / [employer] [id number] Maxan 26mm Level 2 Spine Cervical Anterior Plate Bone Titanium - S. - [id number] Implanted:Qty: 1 on 01/12/2020 by Bruno Moulton MD at [facility] Screw N/A: Spine Cervical [employer] 01/12/2020 [id number] / . / Procedures Procedure Name Priority Date/Time Associated Diagnosis Comments EGFR STAT 06/15/2022 12:04 PM CDT HEMOGLOBIN A1C Routine 01/04/2020 12:45 PM CDT Herniation of cervical intervertebral disc with radiculopathy from Last 3 Months or Most Recently Relevant to Health Maintenance Results * eGFR (06/15/2022 12:04 PM CDT) eGFR 107 mL/min/1. 73 m2 [facility] Comment: Interpretive Data Reference Interval Normal >/= 90 mL/min/1.73m2 Mildly decreased* 60 - 89 mL/min/1.73m2 Mildly to moderately decreased 45 - 59 mL/min/1.73m2 Moderately to severely decreased 30 - 44 mL/min/1.73m2 Severely decreased 15 - 29 mL/min/1.73m2 Kidney Failure < 15 mL/min/1.73m2 *Relative to young adult level Estimated glomerular filtration rate is determined by the 2020 CKD-EPI equation recommended by the National Kidney Foundation (A Unifying Approach to GFR Estimation: Recommendations of the NKF-ASK Task Force on Reassessing the Inclusion of Race in Diagnosing Kidney Disease, JASN 2020). The CKD-EPI equation should not be used for patients with unstable renal function and has not been validated in children and those over 70. Current interpretive data was last reviewed 2021. Testing performed by: [facility], [address] [place] [address], [place]., [address] Blood 06/15/2022 12:0 4 PM CDT 06/15/2022 12:13 PM CDT Anika Franco MD LAB BLOOD ORDERABLES Final Re sult [facility] [address] [facility] Department [place] [address] * (ABNORMAL) Hemoglobin A1c (01/04/2020 12:45 PM CDT) Hgb A1C 6.9(H) 4.0 - 5.6 % [facility] Comment:Testing performed by : [facility], [address] [place] [address]., [id number] Estimated Average Glucose 151 mg/dL [facility] Comment: The ADA recommends reporting an estimated Average Glucose (eAG) with all Hemoglobin A1c results using the equation derived from a study of 507 normal and diabetic adults. Minority populations were underrepresented and children were not included. (Diabetes Care 31:6211-2878, 2008). The eAG is not equivalent to a fasting glucose. Testing performed by: [facility], [address] [place] [address]., [id number] Blood specimen (specimen) 01/04/2020 12:45 PM CDT 01/04/2020 6:18 PM CDT Bruno Moulton MD LAB BLOOD ORDERABLES Final Resul t Performing Organization Address [facility]/ZIP Co de Phone Number [facility] [address] [facility] [place] [address] from Last 3 Months or Most Recently Relevant to Health Maintenance Insurance [facility] Advance Directives For more information, please contact: [phone] Documents on File Type Date Recorded Patient Tool And Gauge Inspector Expl anation ADVANCE DIRECTIVE 01/12/2020 6:56 AM * Full Code (Latest Code Status on File) Date Activated Date Inactivated Comments 01/12/2020 2:03 PM 01/13/2020 6:12 PM Care Teams Team Psychologist Relationship Specialty Start Date End Date Lilly Boone NP PCP - General Nurse Practitioner 10/05/19
--- OUTSIDE RECORDS SUMMARY | 2024-10-31 02:23 | XMS_ITS | Clinical Summary ---
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 Name Role Phone AndersonLilly coates ROBIN Primary Care Provider [phone] Denis Wilder MD Unavailable [phone] Allergies Active Allergy Reactions Criticality Noted Date Comments Bee Venom Anaphylaxis High 11/09/2019 Lisinopril Angioedema Medium 04/08/2018 Magnesium Hives Low 05/13/2019 Penicillins Hives Low 04/08/2018 Steroids Other (see comment) 08/21/2024 It makes my blood sugar high Strawberries Swelling Medium 11/10/2019 New allergy Medications EPINEPHrine (EPIPEN 2-SAMANTHA) 0.3 MG/0.3ML injectionIndicat ions:Allergic reaction, subsequent encounter Inject 0.3 mLs (0.3 mg total) into the muscle as needed for Anaphylaxis. 1 each 2 06/07/19 21 Active Blood Glucose Monitoring Suppl (ONETOUCH VERIO FLEX SYSTEM) w/Device KitIndications:T ype 2 diabetes mellitus with hyperglycemia, without long-term current use of insulin ([facility]) Use with Delcia test strips to test blood sugars daily for DM. 1 kit 06/17/19 23 Active montelukast (SINGULAIR) 10 MG tabletIndication s:Seasonal allergies Take 1 tablet (10 mg total) by mouth nightly at bedtime. 90 tablet 3 08/27/19 23 Active OneTouch Delica Lancets 33G MiscIndications: Type 2 diabetes mellitus with complication, without long-term current use of insulin ([facility]) Use 1 to check glucose TID 100 each 11 10/12/19 24 Active methocarbamol (ROBAXIN) 500 MG tablet Take 1 tablet (500 mg total) by mouth 2 (two) times daily. 12/05/19 24 Active meloxicam (MOBIC) 15 MG tabletIndication s:Acute left ankle pain Take 1 tablet (15 mg total) by mouth daily. 30 tablet 3 12/17/19 24 Active traMADol (ULTRAM) 50 MG tabletIndication s:Chronic Pain Take 1 tablet (50 mg total) by mouth every 6 (six) hours as needed for Pain. Indications: Chronic Pain 30 tablet 2 02/15/20 24 Active fluticasone propionate (FLONASE) 50 MCG/ACT nasal spray 1 spray by Each Nostril route daily as needed. 1 g 04/16/19 25 Active VENTOLIN HFA 108 (90 Base) MCG/ACT inhalerIndicatio ns:Mild intermittent asthma, unspecified whether complicated ([facility]) INHALE 2 PUFFS INTO THE LUNGS EVERY 4 TO 6 HOURS NEEDED 18 g 3 06/11/19 25 Active WIXELA INHUB 100-50 MCG/ACT inhalerIndicatio ns:Wheezing INHALE 1 PUFF INTO THE LUNGS TWICE DAILY 60 each 3 06/22/19 25 Active metFORMIN (GLUCOPHAGE) 1000 MG tabletIndication s:Type 2 diabetes mellitus with hyperglycemia, without long-term current use of insulin ([facility]) TAKE 1 TABLET(1000 MG) BY MOUTH TWICE DAILY 180 tablet 3 06/22/19 25 Active metoprolol tartrate (LOPRESSOR) 25 MG tabletIndication s:Essential hypertension TAKE 1 TABLET(25 MG) BY MOUTH TWICE DAILY 180 tablet 3 06/22/19 25 Active amLODIPine (NORVASC) 10 MG tabletIndication s:Essential hypertension TAKE 1 TABLET(10 MG) BY MOUTH DAILY 90 tablet 3 06/22/19 25 Active calcium carbonate-vitami n D (OSCAL + D) 500-5 MG-MCG Tab tabletIndication s:Osteopenia of necks of both femurs Take 1 tablet by mouth daily. 180 tablet 2 06/30/19 25 Active dulaglutide (TRULICITY) 3 MG/0.5ML injectionIndicat ions:Type 2 diabetes mellitus with hyperglycemia, without long-term current use of insulin ([facility]) Inject 3 mg into the skin once a week. 2 mL 2 09/16/19 25 Active miSOPROStol (CYTOTEC) 200 MCG tablet Take 1 tablet (200 mcg total) by mouth. Patient will start a week before the procedure 10/18/19 25 Active Glucose Blood (ONETOUCH VERIO) test stripIndications :Type 2 diabetes mellitus with hyperglycemia, without long-term current use of insulin ([facility]) Use as instructed daily glucose check in am. 200 strip 3 10/19/19 25 Active Glucose Blood (ONETOUCH VERIO) test stripIndications :Type 2 diabetes mellitus with hyperglycemia, without long-term current use of insulin ([facility]) Use as instructed daily glucose check in am. 100 strip 3 07/13/19 24 025 Discontinu ed(Reorder ) Na sulfate-K sulfate-Mg sulfate (SUPREP BOWEL PREP) 17.5-3.13-1.6 GM/177ML SolutionIndicati ons:Colon cancer screening Take 177 mLs by mouth every 12 (twelve) hours for 1 day. Pour ONE (1) 6-ounce bottle of SUPREP liquid into the mixing container. Add cool drinking water to the 16-ounce line on the container and mix. Have the patient Drink: ALL the liquid in the container, then drink two (2) more 16-ounce containers of water over the next 1 hour. 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) Essential hypertension Atypical chest pain NEGRETE (dyspnea on exertion) Resolved Problems Problem Noted Date Diagnosed Date Resolved Date Colon cancer screening 10/12/202410/17 Encounters Date Type Department Care Team Description 10/21/2024 6:31 AM CDT - 10/21/2024 11:59 PM CDT Hospital Encounter [facility] MRI [address] [place] [address] George Mcadams MD Discharge Disposition: Home or Self Care (Routine Discharge) 10/21/2024 Travel 10/18/2024 7:40 AM CDT Office Visit [facility] - [place] [address] [place] [phone] Lilly Boone APNP Follow Up (A1c f/u) 10/18/2024 Results Follow-Up [facility] - [place] [address] [place] [address] Lilly Boone APNP HEMOGLOBIN, GLYCOSYLATED 10/18/2024 Travel 10/12/2024 Orders Only [facility] - [facility] [address] [facility] [address] [place] [address] Giulia Palacio, ADMINISTRATIVE SUPPORT TECHNICIAN 10/12/2024 Orders Only [facility] - [facility] [address] [facility] [address] [place] [address] Rush Ferrari MD 09/13/2024 Scan HEALTH INFO SRVCS Scanned, [facility] Ultrasound (SCAN) 08/25/2024 7:40 AM CDT Office Visit [facility] - [place] [address] [place] [address] Lilly Boone APNP ER F/U (Hyperglycemia and htn ) 08/25/2024 Results Follow-Up [facility] - [place] [address] [place] [address] Lilly Boone APNP HEMOGLOBIN, GLYCOSYLATED 08/25/2024 Travel 08/21/2024 8:58 AM CDT - 08/21/2024 12:47 PM CDT Emergency [facility] [place] [address] Darren Anne NP Hyperglycemia Discharge Disposition: Home or Self Care (Routine Discharge) 08/21/2024 Travel from Last 3 Months Immunizations Immunization Administration Dates Next Due Dtp (Generic) 04/26/1993, 0,04/05/1968,1967,01/27/1968 Fluzone (IIV3, Trivalent, 0. 5 ML Prefilled Syringe) 12/17/2023 Influenza (Generic) 01/30/2014 Influenza Adult (Generic) 01/13/2020,03/2017(Deferred: Patient Refused) MMR (Generic) 04/26/1993,11/15/1968 MMR (MMRII) 09/30/2018,09/02/2018 Opv 10/22/1969, 9,03/03/1968,1967 PFIZER COVID-19 (ORIGINAL FORMULATION, PURPLE CAP) mRNA, LNP-S, PF, 30 MCG/0.3 ML DOSE 07/09/2020,06/17/2020 Tdap (Generic) 08/23/2018 Tdap (Historical Only-select from magnify glass) 08/23/2018 Family History Medical History Relation Comments None Father due to inju scott from a car accident at age 35 [place] Maternal Uncle Arthritis Mother Relation Status Comments Father Alive Maternal Uncle Mother Alive Social History Tobacco Use Types Packs/Day Years Used Date Smoking Tobacco: Never Passive Smoke Exposure: Past Smokeless Tobacco: Never Tobacco Cessation:Counseling Given: No Alcohol Use Standard Drinks/Week Comments Never 0 [...] Sex Assigned at Female 04/16/2024 10:05 AM EVENT ATTENDANT Legal Sex Female 11:50 AM CDT Gender Identity Not on file Sexual Orientation Not on file Last Filed Vital Signs Vital Sign Reading Time Taken Comments Blood Pressure 126/84 10/18/2024 7:51 AM CDT Pulse 82 10/18/2024 7:51 AM CDT Temperature 37 C (98.6 F) 10/18/2024 7:51 AM CDT Respiratory Rate 16 10/18/2024 7:51 AM CDT Oxygen Saturation 98% 10/18/2024 7:51 AM CDT Inhaled Oxygen Concentration - - Weight 83.3 kg (183 lb 9.6 oz) 10/18/2024 7:51 A M CDT Height 162.6 cm (5' 4) 10/18/2024 7:51 AM CDT Body Mass Index 31.51 10/18/2024 7:51 AM CDT Plan of Treatment Upcoming Encounters Date Type Department Care Team (Latest Contact Info) Description 12/19/2024 7:40 AM CDT Office Visit [facility] Family [facility] - [place] [address] [place] [address] Lilly Boone APNP [address] [place] [address] 01/12/2025 10:00 AM CDT Office Visit [facility] [address] [place], [place] [address] Yung Barnes MD [address] [facility] [address] [place], [place] [address] 05/25/2025 8:00 AM EVENT ATTENDANT Hospital Encounter [facility] [place] [address] Rush Ferrari MD [address] [address] 05/25/2025 8:00 AM EVENT ATTENDANT - 05/25/2025 8:30 AM EVENT ATTENDANT Surgery [facility] [place] [address] Rush Ferrari MD [address] [address] COLONOSCOPY SCREENING Scheduled Procedures Name Priority Associated Diagnoses Date/Ti me COLONOSCOPY SCREENING Colon cancer screening 05/25/2025 8:00 AM EVENT ATTENDANT Health Maintenance Due Date Last Done Comments Cervical Cancer Screening Pap Smear (Age 30 to 64) Every 3 Years 1967 Kidney Health Evaluation 1967 Diabetes: Retinopathy Eye Exam 11/16/1985 Hepatitis B Vaccines (1 of 3 - 19+ 3-dose series) 11/16/1986 Pneumococcal Vaccine: 50+ Years (1 of 2 - PCV) 11/16/1986 Cervical Cancer Screening Pap with HPV Testing (Age 30 to 64) Every 5 Years 11/16/1997 Cervical Cancer Screening with HPV 11/16/1997 Zoster Vaccines (1 of 2) 11/16/2017 Colorectal Cancer Screening Colonoscopy (10 Years) 07/06/2023 07/05/2018 COVID-19 Vaccine ( season) 2023 07/09/2020, 06/17/2020 Hemoglobin A1C 04/20/2025 10/18/2024, 06/0 07/2024, 06/13/2024, Additional history exists Annual Physical 06/13/2025 06/13/2024, 11/22, 11/27/2021, Additional history exists Lipid Panel 06/13/2025 06/13/2024, 11/22, 03/13/2022, Additional history exists Mammogram Screening 01/15/2026 01/16/2024, 11/27/2022, 11/23/2021 DTaP, Tdap and Td Vaccines (8 - Td or Tdap) 08/23/2028 08/23/2018, 08/23/2018, 04/26/1993, Additional history exists Hepatitis C Completed 09/20/2020 PHQ-2 (Physician [place]) Completed 06/13/2024 Meningococcal B Vaccine Aged Out No l onger eligible based on patient's age to complete this topic Meningococcal Vaccine Aged Out No melissa danielle eligible based on patient's age to complete this topic RSV Immunizations Under 20 Months Aged Out No longer eligible based on patient's age to complete this topic Goals Goal Patient Goal Type Associated Problems Recent Progress Patient-Stated? Author Autogenerat ed Goal Care Plan Autogenerated Problem No Chayo Cowan Procedures Procedure Name Priority Date/Time Associated Diagnosis Comments MRI BRAIN WWO CON Routine 10/21/2024 6:5 3 AM CDT Ear fullness, right COLLECT.CAPILLARY (FNGR,HEEL,EAR) Routine 10/18/2024 7:43 AM CDT Type 2 diabetes mellitus with hyperglycemia, without long-term current use of insulin ([facility]) HEMOGLOBIN, GLYCOSYLATED Routine 10/18/2024 Type 2 diabetes mellitus with hyperglycemia, without long-term current use of insulin ([facility]/H[facility]) ULTRASOUND GENERIC (SCAN ORDER) 09/13/2024 COLLECT.CAPILLARY (FNGR,HEEL,EAR) Routine 08/25/2024 7:51 AM CDT Type 2 diabetes mellitus with hyperglycemia, without long-term current use of insulin (CMS/HCC HHS/HCC) HEMOGLOBIN, GLYCOSYLATED Routine 08/25/2024 Type 2 diabetes mellitus with hyperglycemia, without long-term current use of insulin ([facility]/HCC) BASIC METABOLIC PANEL STAT 08/21/2024 11:40 AM CDT POCT GLUCOSE - DOCKED DEVICE Routine 08/21/2024 10:56 AM CDT BLOOD GAS, VENOUS STAT 08/21/2024 9:1 0 AM CDT BETA-HYDROXYBUTYRATE STAT 08/21/2024 9:06 AM CDT PHOSPHORUS, INORGANIC PHOSPHATE STAT 08/21/2024 9:06 AM CDT COMPREHENSIVE METABOLIC PANEL STAT 08/21/2024 9:06 AM CDT CBC W/DIFF AUTOMATED STAT 08/21/2024 9:06 AM CDT POCT GLUCOSE - DOCKED DEVICE Routine 08/21/2024 8:55 AM CDT LIPID PANEL Routine 06/13/2024 9:41 AM CDT Screening for hyperlipidemia Healthcare maintenance MAMMOGRAM GENERIC (SCAN ORDER) 01/16/2024 HEPATITIS C ANTIBODY Routine 09/20/2020 8:20 AM CDT Need for hepatitis C screening test COLONOSCOPY GENERIC (SCAN ORDER) Routine 07/05/2018 from Last 3 Months or Most Recently Relevant to Health Maintenance Results * MRI BRAIN WWO CON (10/21/2024 6:53 AM CDT) Anatomical Region Laterality Modality Head Magnetic Resonan ce 10/27/2024 9:55 PM CDT Impressions 10/27/2024 9:58 PM CDT IMPRESSION: 1. Normal appearance of the internal auditory canals. 2. No acute intracranial abnormality. 3. 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 Referred By: GEORGE MCADAMS Interpreted By: Ricki Kamara MD, 10/27/2024 9:55 PM Narrative 10/27/2024 9:58 PM CDT [address] [address] EXAMINATION: MRI BRAIN WWO CON, 10/27/2024 9:55 PM TECHNIQUE: Multiplanar multisequence magnetic resonance images of the brain and IACs were obtained before and after the administration of intravenous contrast, without evidence of adverse reaction HISTORY: Right-sided ear fullness COMPARISON: None available FINDINGS: There is no restricted diffusion to suggest an acute infarction. No hemorrhagic focus of susceptibility. Preserved patricia-white matter differentiation. No abnormally enhancing intracranial parenchymal or mass. T2 hypointense, T1 hyperintense focus along the left posterior medial aspect of the sella that may represent a proteinaceous or hemorrhagic Rathke cleft cyst (best seen on series 3 image 12, series 4 image 10). The callosal, pineal, and craniovertebral junction regions appear within normal limits. There is no extra-axial collection. The ventricles are normal in size. The basal cisterns appear normal. The proximal intracranial arterial flow voids have a normal appearance. Orbital contents appear normal. Paranasal sinuses are otherwise well-aerated. Bnwm-ob-wkblqpgk mucosal thickening involving the inferior portion of the left maxillary sinus. Mastoid air cells are well-aerated. Internal auditory canals, cochlea and semicircular canals have normal morphology. Posterior fossa structures appear normal. Procedure Note Ricki Kamara MD - 10/27/[address] [address] EXAMINATION: MRI BRAIN [facility], 10/27/2024 9:55 PM TECHNIQUE: Multiplanar multisequence magnetic resonance images of thebrain and IACs were obtained before and after the administration ofintravenous contrast, without evidence of adverse reaction HISTORY: Right-sided ear fullness COMPARISON: None available FINDINGS: There is no restricted diffusion to suggest an acute infarction.No hemorrhagic focus of susceptibility. Preserved patricia-white matterdifferentiation. No abnormally enhancing intracranial parenchymal ormass. T2 hypointense, T1 hyperintense focus along the left posteriormedial aspect of the sella that may represent a proteinaceous orhemorrhagic Rathke cleft cyst (best seen on series 3 image 12, series 4image 10). The callosal, pineal, and craniovertebral junction regionsappear within normal limits. There is no extra-axial collection. The ventricles are normal in size.The basal cisterns appear normal. The proximal intracranial arterial flowvoids have a normal appearance. Orbital contents appear normal.Paranasal sinuses are otherwise well-aerated. Lxad-sl-eifvuuxf mucosalthickening involving the inferior portion of the left maxillary sinus.Mastoid air cells are well-aerated. Internal auditory canals, cochlea and semicircular canals have normalmorphology. Posterior fossa structures appear normal. IMPRESSION: 1. Normal appearance of the internal auditory canals. 2. No acute intracranial abnormality. 3. 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 Referred By: GEORGE MCADAMS Interpreted By: Ricki Kamara MD, 10/27/2024 9:55 PM George Mcadams MD MRI Final Result * HEMOGLOBIN, GLYCOSYLATED (10/18/2024) Only the most recent of2 resultswithin the time period is included. HGB A1C 8.0 % [facility] [place] 10/18/2024 Lilly KELLY LABORAT[facility] Final Result [facility]IO [facility] [address] [place] [address], * ULTRASOUND GENERIC (SCAN ORDER) (09/13/2024) Anatomical Region Laterality Modality Other 09/13/2024 [facility] Scanned SCANNING Final Resu lt * (ABNORMAL) BASIC METABOLIC PANEL (08/21/2024 11:40 AM CDT) GLUCOSE 182(H) 70 - 99 MG/DL 08/21/2024 12:18 PM CDT [facility] BUN 9 7 - 18 MG/DL 08/21/2024 12:18 PM CDT [facility] CREATININE S/P/B 0.64 0.55 - 1.02 MG/DL 08/21/2024 12:18 PM CDT [facility] SODIUM S/P/B 141 136 - 145 MMOL/L 08/21/2024 12:18 PM CDT [facility] POTASSIUM S/P/B 3.3(L) 3.5 - 5.1 MMOL/L 08/21/2024 12:18 PM CDT [facility] CHLORIDE S/P/B 110 97 - 115 MMOL/L 08/21/2024 12:18 PM CDT [facility] CO2 25.1 21 - 32 MMOL/L 08/21/2024 12:18 PM CDT [facility] CALCIUM S/P/B 8.6 8.5 - 10.1 MG/DL 08/21/2024 12:18 PM CDT [facility] ANION GAP 5.9 2 - 10 MMOL/L 08/21/2024 12:18 PM CDT [facility] BUN CREATININE RATIO 14.0 6 - 26 08/21/2024 12:18 PM T [facility] GFR ESTIMATE >90 >90 ML/MIN/1.7 3 M2 08/21/2024 12:18 PM T [facility] Comment: NOTE: eGFR is not calculated for patients <18 years of age or gender unknown. This is an estimated GFR calculation using the new CKD EPI creatinine equation without race and so does not require a correction factor for race. This estimated GFR should not be used for calculating drug doses. 08/21/2024 11:4 0 AM CDT us Darren Anne NP LABORATORY Final Result [facility] [address] [place] [address], [place] [phone] * (ABNORMAL) POCT glucose (08/21/2024 10:56 AM CDT) Only the most recent of2 resultswithin the time period is included. GLUCOSE POC 382(H) 70 - 99 mg/dL 08/21/2024 10:58 AM CDT [facility] 08/21/2024 10:5 6 AM CDT Darren Anne NP POCT ORDERABLES - DEVICE Final Result [facility] [address] [place] [address], [place] [phone] * (ABNORMAL) Blood gas, venous (08/21/2024 9:10 AM CDT) [facility] PH VENOUS 7.37 7.32 - 7.43 08/21/2024 9:25 AM CDT [facility] PCO2 VENOUS 47.0 MMHG 08/21/2024 9:25 AM CDT [facility] Comment:NO REFERENCE RANGE H BEEN ESTABLISHED PO2 VENOUS 34.0 MM HG 08/21/2024 9:25 AM CDT [facility] Comment:NO REFERENCE RANGE H BEEN ESTABLISHED TOTAL CO2 VENOUS 28.6(H) 22.0 - 26.0 MMOL/L 08/21/2024 9:25 AM CDT [facility] VENOUS BASE EXCESS 1.3 MMOL/L 08/21/2024 9:25 AM CDT [facility] Comment:NO REFERENCE RANGE H BEEN ESTABLISHED O2 SAT VENOUS 63 % 08/21/2024 9:25 AM CDT [facility] Comment:NO REFERENCE RANGE H BEEN ESTABLISHED BICARB VENOUS 27.2 22.0 - 29.0 MMOL/L 08/21/2024 9:25 AM CDT [facility] O2 ADMIN VENOUS 21 9:18 AM CDT [facility] 08/21/2024 9:10 AM CDT Darren Anne LAST CODE STRIPER LABORATORY Final Result [facility] [address] [place] [address], [place] [phone] * BETA-HYDROXYBUTYRATE (08/21/2024 9:06 AM CDT) BETA-HYDROXYBUT YRATE 0.3 0.0 - 0.5 MMOL/L 08/21/2024 9:43 AM CDT [facility] 08/21/2024 9:06 AM CDT Darren Anne LAST CODE STRIPER LABORAT[facility] Final Result Performing Organization Address City/[facility]/ZIP Co de Phone Number [facility] [address] [place] [address], [place] [phone] * (ABNORMAL) COMPREHENSIVE METABOLIC PANEL (08/21/2024 9:06 AM CDT) GLUCOSE 474(HH) 70 - 99 MG/DL 08/21/2024 9:39 AM CDT [facility] Comment: Critical Result(s) Called at: 09:38:24 on 08/21/2024 by: AMY HERNANDEZ to and read back by: LUIS BARRIOS BUN 11 7 - 18 MG/DL 08/21/2024 9:39 AM CDT [facility] CREATININE S/P/B 0.91 0.55 - 1.02 MG/DL 08/21/2024 9:39 AM CDT [facility] SODIUM S/P/B 134(L) 136 - 145 MMOL/L 08/21/2024 9:39 AM CDT [facility] POTASSIUM S/P/B 4.0 3.5 - 5.1 MMOL/L 08/21/2024 9:39 AM CDT [facility] CHLORIDE S/P/B 103 97 - 115 MMOL/L 08/21/2024 9:39 AM CDT [facility] CO2 24.6 21 - 32 MMOL/L 08/21/2024 9:39 AM CDT [facility] CALCIUM S/P/B 9.4 8.5 - 10.1 MG/DL 08/21/2024 9:39 AM CDT [facility] BILIRUBIN TOTAL S/P/B 0.4 0.2 - 1.2 MG/DL 08/21/2024 9:39 AM T [facility] Comment: THIS ASSAY IS NOT RECOMMENDED FOR PATIENTS UNDERGOING TREATMENT WITH ELTROMBOPAG DUE TO THE POTENTIAL FOR FALSELY ELEVATED RESULTS. TOTAL PROTEIN S/P/B 7.8 6.4 - 8.2 G/DL 08/21/2024 9:39 AM T [facility] ALBUMIN S/P/B 3.7 3.4 - 5.0 G/DL 08/21/2024 9:39 AM CDT [facility] AST 11(L) 15 - 37 U/L 08/21/2024 9:39 AM CDT [facility] ALT 21 14 - 55 U/L 08/21/2024 9:39 AM T [facility] ALKALINE PHOSPHATASE S/P/B 159(H) 50 - 136 U/L 08/21/2024 9:39 AM CDT [facility] ANION GAP 6.4 2 - 10 MMOL/L 08/21/2024 9:39 AM CDT [facility] BUN CREATININE RATIO 12.1 6 - 26 08/21/2024 9:39 AM CDT [facility] A/G RATIO 0.9(L) 1.0 - 2.0 RATIO 08/21/2024 9:39 AM CDT [facility] GFR ESTIMATE 74(L) >90 ML/MIN/1.7 3 M2 08/21/2024 9:39 AM CDT [facility] Comment: NOTE: eGFR is not calculated for patients <18 years of age or gender unknown. This is an estimated GFR calculation using the new CKD EPI creatinine equation without race and so does not require a correction factor for race. This estimated GFR should not be used for calculating drug doses. 08/21/2024 9:06 AM CDT Darren Anne NP LABORATORY Final Result [facility] [address] [place] [address], [place] [phone] * (ABNORMAL) CBC W/DIFF AUTOMATED (08/21/2024 9:06 AM CDT) WBC 4.24(L) 4.5 - 11.0 x10'3/uL 08/21/2024 9:27 AM CDT [facility] RBC 4.64 4.20 - 5.40 x10'6/uL 08/21/2024 9:27 AM CDT [facility] HGB 12.5 12.0 - 16.0 G/DL 08/21/2024 9:27 AM CDT [facility] HCT 39.4 38.0 - 48.0 % 08/21/2024 9:27 AM CDT [facility] MCV 84.9 81.0 - 99.0 FL 08/21/2024 9:27 AM CDT [facility] MCH 26.9(L) 27.0 - 31.0 PG 08/21/2024 9:27 AM CDT [facility] [facility] MCHC 31.7(L) 32.0 - 36.0 G/DL 08/21/2024 9:27 AM T [facility] RDW 13.2 11.5 - 14.5 % 08/21/2024 9:27 AM T [facility] PLT 206 130 - 400 x10'3/uL 08/21/2024 9:27 AM T [facility] MPV 13.3(H) 9.3 - 12.2 FL 08/21/2024 9:27 AM T [facility] DIFFERENTIAL TYPE AUTOMATED DIFFERENTIAL 08/21/2024 9:27 AM T [facility] NEUTROPHILS % 52.1 % 08/21/2024 9:27 AM T [facility] LYMPHOCYTES % 35.6 % 08/21/2024 9:27 AM T [facility] MONOCYTES % 6.4 % 08/21/2024 9:27 AM T [facility] EOSINOPHILS 5.2 % 08/21/2024 9:27 AM T [facility] BASOPHILS 0.5 % 08/21/2024 9:27 AM T [facility] IMMATURE GRANS % 0.2 % 08/22/19 9:27 AM CDT [facility] ABS. NEUTROPHILS 2.21 1.80 - 7.70 x10'3/uL 08/21/2024 9:27 AM T [facility] ABS. LYMPHOCYTES 1.51 1.00 - 4.80 x10'3/uL 08/21/2024 9:27 AM CDT [facility] ABS. MONOCYTES 0.27 0.24 - 0.86 x10'3/uL 08/21/2024 9:27 AM CDT [facility] ABS. EOSINOPHILS 0.22 0.04 - 0.36 x10'3/uL 08/21/2024 9:27 AM CDT [facility] ABS. BASOPHILS 0.02 0.01 - 0.08 x10'3/uL 08/21/2024 9:27 AM CDT [facility] ABS. IMMATURE GRANULOCYTES 0.01 0.00 - 0.49 x10'3/uL 08/21/2024 9:27 AM CDT [facility] 08/21/2024 9:06 AM CDT Darren Anne LAST CODE STRIPER LABORATORY Final Result [facility] [address] [place] [address], * PHOSPHORUS, INORGANIC PHOSPHATE (08/21/2024 9:06 AM CDT) PHOSPHORUS 3.8 2.5 - 4.9 MG/DL 08/21/2024 9:39 AM CDT [facility] 08/21/2024 9:06 AM CDT Darren Anne LAST CODE STRIPER LABORATORY Final Result [facility] [address] [place] [address], [place] [phone] * LIPID PANEL (06/13/2024 9:41 AM CDT) CHOLESTEROL 121 <200 MG/DL 06/13/2024 3:[address] [facility] TRIGLYCERIDES 115 <150 MG/DL 06/13/2024 3:[address] [facility] HDL 46 >40 MG/DL 06/13/2024 3:[address] [facility] LDL-C 52 <100 MG/DL 06/13/2024 3:[address] [facility] VLDL CALCULATION 23 5 - 28 MG/DL 06/13/2024 3:[address] [facility] CHOL/HDL RATIO 2.6 0.0 - 4.0 06/13/2024 3:[address] [facility] LDL/HDL 1.1 0.41 - 2.13 06/13/2024 3:[address] [facility] NON HDL CHOLESTEROL 75 <140 MG/DL 06/13/2024 3:[address] [facility] 06/13/2024 9:41 AM CDT Lilly KELLY LABORATORY Final Result [facility] [address] [place] [address], * MAMMOGRAM GENERIC (SCAN ORDER) (01/16/2024) Anatomical Region Laterality Modality Other 01/16/2024 [facility] Scanned SCANNING Final Resu lt * HEPATITIS C ANTIBODY (09/20/2020 8:20 AM CDT) HEPATITIS C AB NON-REACTI VE NON-REACT CODY 09/20/2020 9:47 PM CDT [facility] Comment: ANTIBODIES TO HCV NOT DETECTED. DOES NOT EXCLUDE THE POSSIBILITY OF EXPOSURE TO HCV. 09/20/2020 8:20 AM CDT Lilly KELLY LABORATORY Final Result [facility] [address] [place] [address], [place] [phone] * COLONOSCOPY (07/05/2018) us Documents Scanned SCANNING Final Result Performing Organization Address City/[facility]/ZIP Co de Phone Number [facility] [address] [place] [address] from Last 3 Months or Most Recently Relevant to Health Maintenance Additional Health Concerns Active Problems Noted Date Diagnosed Date Autogenerated Problem 10/12/2024 Insurance [employer] [facility] [employer] [facility] Care Teams Wind Turbine Mechanical Engineer Relationship Specialty Start Date End Date Lilly Boone APNP [address] [place] [address] PCP - General NURSE PRACTITIONER 04/09/18 Denis Wilder MD 3 [facility] [address] [place] [address] Curran Documentation Coordinator CARDIOVASCULAR DISEASE 04/09/18
--- OUTSIDE RECORDS SUMMARY | 2024-10-31 02:23 | XMS_ITS | Encounter Summary ---
Author Organization [facility] Address [facility]ly [facility] [place] [address] Care Team Providers Care Office 365 Consultant Name Role Phone Paolo Lilly KELLY Primary Care Provider [phone] Denis Wilder MD Unavailable [phone] Encounter Details Date Type Department Care Team (Late st Contact Info) Description 07/01/2022 [place] Message Enc [facility] [address] [address] [address], [facility] Provider Echocardiogram Social History Tobacco Use Types Packs/Day Years [...] please move on to questions 3-9 0 11/27/2021 Comments No Sex and Gender Information Value Date Recorded Sex Assigned at Female 04/16/2024 10:05 AM LAWYER PROBATE Legal Sex Female 11:50 AM CDT Gender Identity Not on file Sexual Orientation Not on file COVID-19 Exposure Response Date Recorded In the last 10 days, have yo u been in contact with someone who was confirmed or suspected to have Coronavirus/COVID-19? No / Unsure 06/27/2022 1:09 PM CDT documented as of this encounter Plan of Treatment Upcoming Encounters Date Type Department Care Team (Latest Contact Info) Description 12/19/2024 7:40 AM CDT Office Visit [facility] Medical [facility] Family and Sports Medicine - [place] [address] [place] [phone] Lilly Boone APNP [address] [place] [address] 01/12/2025 10:00 AM CDT Office Visit [facility] THREE [facility] [place] [address] [place] [address] Yung Barnes MD Three [facility] [address] [place] [address] 05/25/2025 8:00 AM LAWYER PROBATE Hospital Encounter [facility] [place] [address] Rush Ferrari MD 3 [facility] [address] [place] [address] 05/25/2025 8:00 AM LAWYER PROBATE - 05/25/2025 8:30 AM LAWYER PROBATE Surgery [facility] [place] [address] Rush Ferrari MD 3 [facility] [address] [place] [address] COLONOSCOPY SCREENING Scheduled Procedures Name Priority Associated Diagnoses Date/Ti me COLONOSCOPY SCREENING Colon cancer screening 05/25/2025 8:00 AM LAWYER PROBATE documented as of this encounter Visit Diagnoses Not on filedocumented in this encounter Additional Health Concerns Assessment Noted Time PHQ-9 Depression Total Score: 0 11/28/19 8:27 AM CDT documented as of this encounter Care Teams Office 365 Consultant Relationship Specialty Start Date End Date Lilly Boone APNP [address] [place] [address] PCP - General NURSE PRACTITIONER 04/09/18 Denis Wilder MD 3 [facility] [address] [place] [address] [place] Can Marker CARDIOVASCULAR DISEASE 04/09/18 documented as of this encounter
--- OUTSIDE RECORDS SUMMARY | 2024-10-31 02:23 | XMS_ITS | Encounter Summary ---
Author Organization [facility] Address [address] [place] [address] Care Team Providers Care Estate Manager Name Role Phone Lilly Boone Primary Care Provider [phone] Denis Wilder MD Unavailable [phone] Encounter Details Date Type Department Care Team (Late st Contact Info) Description 06/29/2024 [employer]t Message Enc [facility] Medical [facility] Family [facility] Sports Medicine [place] [address] [place] [address] Lilly Boone APNP [address] [place] [address] Bone Density Social History Tobacco Use Types Packs/Day Years [...] Sex Assigned at Female 04/16/2024 10:05 AM EXECUTIVE VICE PRESIDENT OF SALES Legal Sex Female 11:50 AM CDT Gender Identity Not on file Sexual Orientation Not on file documented as of this encounter Plan of Treatment Upcoming Encounters Date Type Department Care Team (Latest Contact Info) Description 12/19/2024 7:40 AM CDT Office Visit [facility] - [place] [address] [place] [address] Lilly Bonoe APNP [address] [place] [address] 01/12/2025 10:00 AM CDT Office Visit [facility] THREE [facility] [place] [address] [place] [address] Yung Barnes MD Three [facility] [address] [place] [address] 05/25/2025 8:00 AM EXECUTIVE VICE PRESIDENT OF SALES Hospital Encounter [facility] [place] [address] Rush Ferrari MD 3 [facility] [address] [place] [address] 05/25/2025 8:00 AM EXECUTIVE VICE PRESIDENT OF SALES - 05/25/2025 8:30 AM EXECUTIVE VICE PRESIDENT OF SALES Surgery [facility] [place] [address] Rush Ferrari MD 3 [facility] [address] [place] [address] COLONOSCOPY SCREENING Scheduled Procedures Name Priority Associated Diagnoses Date/Ti me COLONOSCOPY SCREENING Colon cancer screening 05/25/2025 8:00 AM EXECUTIVE VICE PRESIDENT OF SALES documented as of this encounter Visit Diagnoses Not on filedocumented in this encounter Additional Health Concerns Assessment Noted Time PHQ-9 Depression Total Score: 1 12/16/19 8:16 AM CDT documented as of this encounter Care Teams Estate Manager Relationship Specialty Start Date End Date Lilly Boone APNP [address] [place] [address] PCP - General NURSE PRACTITIONER 04/09/18 Denis Wilder MD 3 [facility] [address] [place] [address] [place] Workforce Planner CARDIOVASCULAR DISEASE 04/09/18 documented as of this encounter
--- OUTSIDE RECORDS SUMMARY | 2024-10-31 02:23 | XMS_ITS | Encounter Summary ---
Author Organization [facility] Address [facility] [place] [place] [address] Care Team Providers Care Civil Drafting Technician Name Role Phone AndersonLilly coates ROBIN Primary Care Provider [phone] Denis Wilder MD Unavailable [phone] Encounter Details Date Type Department Care Team (Late st Contact Info) Description 03/18/2022 Orabrush Message Enc [facility] [address] [address] [place], [facility] Provider Lab results Social History Tobacco Use Types Packs/Day Years [...] Sex Assigned at Female 04/16/2024 10:05 AM EYEGLASS CUTTER Legal Sex Female 11:50 AM CDT Gender Identity Not on file Sexual Orientation Not on file documented as of this encounter Plan of Treatment Upcoming Encounters Date Type Department Care Team (Latest Contact Info) Description 12/19/2024 7:40 AM CDT Office Visit [facility] Medical Group Family and Sports Medicine - [place] [address] [place] [address] Lilly Boone APNP [address] [place] [address] 01/12/2025 10:00 AM CDT Office Visit [facility] [facility] THREE [facility] [place] [address] [place] [address] Yung Barnes MD Three [facility] [address] [place] [address] 05/25/2025 8:00 AM EYEGLASS CUTTER Hospital Encounter [facility] [place] [address] Rush Ferrari MD 3 [facility] [address] [place] [address] 05/25/2025 8:00 AM EYEGLASS CUTTER - 05/25/2025 8:30 AM EYEGLASS CUTTER Surgery [facility] Endo/[place] [address] Rush Ferrari MD 3 [facility] [address] [place] [address] COLONOSCOPY SCREENING Scheduled Procedures Name Priority Associated Diagnoses Date/Ti me COLONOSCOPY SCREENING Colon cancer screening 05/25/2025 8:00 AM EYEGLASS CUTTER documented as of this encounter Visit Diagnoses Not on filedocumented in this encounter Additional Health Concerns Assessment Noted Time PHQ-9 Depression Total Score: 0 11/28/19 22 8:27 AM CDT documented as of this encounter Care Teams Civil Drafting Technician Relationship Specialty Start Date End Date Lilly Boone APNP [address] [place] [address] PCP - General NURSE PRACTITIONER 04/09/18 Denis Wilder MD 3 [facility] [address] [place] [address] [place] Steel Heater CARDIOVASCULAR DISEASE 04/09/18 documented as of this encounter
--- OUTSIDE RECORDS SUMMARY | 2024-10-31 02:23 | XMS_ITS | Encounter Summary ---
Author Organization [facility] Address [address] [place] [address] Care Team Providers Care Body Trimmer Name Role Phone Lilly Boone Primary Care Provider [phone] Denis Wilder MD Unavailable [phone] Encounter Details Date Type Department Care Team (Late st Contact Info) Description 01/05/2020 [place]ink Message Enc [facility] Medical Group Family and Sports Medicine - [place] [address] [place] [address] Lilly Boone APNP [address] [place] [address] RE: Other Social History Tobacco Use Types Packs/Day Years [...] Sex Assigned at Female 04/16/2024 10:05 AM CUTTER DOWN Legal Sex Female 11:50 AM CDT Gender Identity Not on file Sexual Orientation Not on file COVID-19 Exposure Response Date Recorded In the last month, have you been in contact with someone who was confirmed or suspected to have Coronavirus / COVID-19? No / Unsure 12/23/2019 12:47 PM CDT documented as of this encounter Plan of Treatment Upcoming Encounters Date Type Department Care Team (Latest Contact Info) Description 12/19/2024 7:40 AM CDT Office Visit [facility] Medical Group Family and Sports Medicine - [place] [address] [place] [address] Lilly Boone APNP [address] [place] [address] 01/12/2025 10:00 AM CDT Office Visit [facility] [place] [address] [place] [address] Yung Barnes MD Three [facility] [address] [place] [address] 05/25/2025 8:00 AM CUTTER DOWN Hospital Encounter [facility] [place] [address] Rush Ferrari MD 3 [facility] [address] [place] [address] 05/25/2025 8:00 AM CUTTER DOWN - 05/25/2025 8:30 AM CUTTER DOWN Surgery [facility] Endo/[place] [address] Rush Ferrari MD 3 [facility] [address] [place] [address] COLONOSCOPY SCREENING Scheduled Procedures Name Priority Associated Diagnoses Date/Ti me COLONOSCOPY SCREENING Colon cancer screening 05/25/2025 8:00 AM CUTTER DOWN documented as of this encounter Visit Diagnoses Not on filedocumented in this encounter Additional Health Concerns Assessment Noted Time PHQ-9 Depression Total Score: 0 09/16/19 20 3:42 PM CDT documented as of this encounter Care Teams Body Trimmer Relationship Specialty Start Date End Date Lilly Boone APNP [address] [place] [address] PCP - General NURSE PRACTITIONER 04/09/18 Denis Wilder MD 3 [facility] [address] [place] [phone] [place] Equity Director CARDIOVASCULAR DISEASE 04/09/18 documented as of this encounter
--- OUTSIDE RECORDS SUMMARY | 2024-10-31 02:23 | XMS_ITS | Encounter Summary ---
Author Organization [facility] Address [address] [place] [address] Care Team Providers Care Denture Finisher Name Role Phone Lilly Boone Primary Care Provider [phone] Denis Wilder MD Unavailable [phone] Encounter Details Date Type Department Care Team (Late st Contact Info) Description 03/18/2022 Abstract [facility] [address] Kenny Lea MA Social History Tobacco Use Types Packs/Day Years [...] Sex Assigned at Female 04/16/2024 10:05 AM HAIR PREPARER Legal Sex Female 11:50 AM CDT Gender Identity Not on file Sexual Orientation Not on file documented as of this encounter Plan of Treatment Upcoming Encounters Date Type Department Care Team (Latest Contact Info) Description 12/19/2024 7:40 AM CDT Office Visit [facility] Medical Group Family and Sports Medicine - [place] [address] [place] [address] PoLilly coates APNP [address] [facility] [place] [address] 01/12/2025 10:00 AM CDT Office Visit [facility] THREE [facility] [address] [place] [address] Yung Barnes MD Three [facility] [address] [place] [address] 05/25/2025 8:00 AM HAIR PREPARER Hospital Encounter [place] [address] [facility] [place] [address] Rush Ferrari MD 3 [facility] [address] [place] [address] 05/25/2025 8:00 AM HAIR PREPARER - 05/25/2025 8:30 AM HAIR PREPARER Surgery [facility] [place]o/[place] [address] Rush Ferrari MD 3 [facility] [address] [place] [address] COLONOSCOPY SCREENING Scheduled Procedures Name Priority Associated Diagnoses Date/Ti me COLONOSCOPY SCREENING Colon cancer screening 05/25/2025 8:00 AM HAIR PREPARER documented as of this encounter Procedures Procedure Name Priority Date/Time Associated Diagnosis Comments CBC (OUTSIDE LAB) Routine 03/13/2022 LIPID PANEL Routine 03/13/2022 documented in this encounter Results * LIPID PANEL (03/13/2022) CHOLESTEROL 121 HDL 43 TRIGLYCERIDES 101 LDL (CALCULATED) 59 03/13/2022 us Default History Genericprovider LABORATORY Final Result * CBC (OUTSIDE LAB) (03/13/2022) WBC 4.1 HGB 12.6 HCT 39.1 PLT 241 03/13/2022 us Default History Genericprovider LAB-OUTSIDE/ABST RACTED Final Result documented in this encounter Visit Diagnoses Not on filedocumented in this encounter Additional Health Concerns Assessment Noted Time PHQ-9 Depression Total Score: 0 11/28/19 22 8:27 AM CDT documented as of this encounter Care Teams Denture Finisher Relationship Specialty Start Date End Date Lilly Boone APNP [address] [place] [address] PCP - General NURSE PRACTITIONER 04/09/18 Denis Wilder MD 3 [facility] [address] [place] [address] [place] Speedboat Operator CARDIOVASCULAR DISEASE 04/09/18 documented as of this encounter
--- OUTSIDE RECORDS SUMMARY | 2024-10-31 02:23 | XMS_ITS | Encounter Summary ---
Author Organization [facility] Address [address] [place] [address] Care Team Providers Care Anesthesiology Physician Assistant Name Role Phone Lilly Boone Primary Care Provider [phone] Denis Wilder MD Unavailable [phone] Encounter Details Date Type Department Care Team (Late st Contact Info) Description 04/14/2018 Abstract [facility] at [address] [address] Kenny Lea MA Social History Tobacco Use Types Packs/Day Years Used Date Smoking Tobacco: Never Smokeless Tobacco: Never Alcohol Use Standard Drinks/Week Comments No 0 (1 standard drink = 0.6 oz pur e alcohol) AUDIT-C Answer Date Recorded Frequency of Alcohol Consumption Never 04/12/2018 Average Number of Drinks Not on file 019 Frequency of Binge Drinking Not on file 03/24 Comments Unknown Sex and Gender Information Value Date Recorded Sex Assigned at Female 04/16/2024 10:05 AM FOOD MIXER ASSEMBLER Legal Sex Female 11:50 AM CDT Gender Identity Not on file Sexual Orientation Not on file documented as of this encounter Plan of Treatment Upcoming Encounters Date Type Department Care Team (Latest Contact Info) Description 12/19/2024 7:40 AM CDT Office Visit [facility] Medical Group Family and Sports Medicine - [place] [address] [place] [address] Lilly Boone APNP [address] [place] [address] 01/12/2025 10:00 AM CDT Office Visit [facility] THREE [facility] [address] [place] [address] Yung Barnes MD Three [facility] [address] [place] [address] 05/25/2025 8:00 AM FOOD MIXER ASSEMBLER Hospital Encounter [facility] One Day Services ONE [facility] [place] [address] Rush Ferrari MD 3 [facility] [address] [place] [address] 05/25/2025 8:00 AM FOOD MIXER ASSEMBLER - 05/25/2025 8:30 AM FOOD MIXER ASSEMBLER Surgery [facility] Endo/GI [facility] [place] [address] Rush Ferrari MD 3 [facility] [address] [place] [address] COLONOSCOPY SCREENING Scheduled Procedures Name Priority Associated Diagnoses Date/Ti me COLONOSCOPY SCREENING Colon cancer screening 05/25/2025 8:00 AM FOOD MIXER ASSEMBLER documented as of this encounter Procedures Procedure Name Priority Date/Time Associated Diagnosis Comments BASIC METABOLIC PANEL Routine 08/10/2018 BASIC METABOLIC PANEL Routine 06/21/2018 LIPID PANEL Routine 06/21/2018 BASIC METABOLIC PANEL Routine 04/12/2018 documented in this encounter Results * (ABNORMAL) BASIC METABOLIC PANEL (08/10/2018) SODIUM S/P/B 144 POTASSIUM S/P/B 3.5 CO2 27 CH[place]IDE S/P/B 100 GLUCOSE 182 mg/dL CALCIUM S/P/B 10.1 BUN 9 CREATININE S/P/B 0.77 0.5 - 1.0 EGFR AFR. AMER. 104(A) <=90 EGFR NON-AFR. AMER. 90 <=90 08/10/2018 us Doc [facility] LABORATORY Final Result * LIPID PANEL (06/21/2018) CHOLESTEROL 104 HDL 40 TRIGLYCERIDES 126 LDL (CALCULATED) 39 06/21/2018 us Doc [facility] Final Result * (ABNORMAL) BASIC METABOLIC PANEL (06/21/2018) SODIUM S/P/B 144 POTASSIUM S/P/B 3.3 3.5 - 5.2 CO2 24 CHLORIDE S/P/B 102 GLUCOSE 148 mg/dL CALCIUM S/P/B 9.5 BUN 10 CREATININE S/P/B 0.78 0.5 - 1.0 EGFR AFR. AMER. 103(A) <=90 EGFR NON-AFR. AMER. 89 <=90 06/21/2018 us Doc [facility]ORAT[facility] Final Result * (ABNORMAL) BASIC METABOLIC PANEL (04/12/2018) SODIUM S/P/B 145 POTASSIUM S/P/B 3.9 CO2 25 CHLORIDE S/P/B 102 GLUCOSE 125 mg/dL CALCIUM S/P/B 10.2 BUN 13 CREATININE S/P/B 0.82 0.5 - 1.0 EGFR AFR. AMER. 96(A) <=90 EGFR NON-AFR. AMER. 84 <=90 04/12/2018 us Doc [facility] Final Result documented in this encounter Visit Diagnoses Not on filedocumented in this encounter Care Teams Anesthesiology Physician Assistant Relationship Specialty Start Date End Date Lilly Boone APNP [address] [place] [address] PCP - General NURSE PRACTITIONER 04/09/18 Denis Wilder MD 3 [facility] [address] [place] [address] [place] Emergency Room Physician CARDIOVASCULAR DISEASE 04/09/18 documented as of this encounter
--- OUTSIDE RECORDS SUMMARY | 2024-10-31 02:23 | XMS_ITS | Encounter Summary ---
Author Organization [facility] Address [address] [place] [address] Care Team Providers Care Document Control Clerk Name Role Phone Zinaraghu Lilly KELLY Primary Care Provider [phone] Denis Wilder MD Unavailable [phone] Encounter Details Date Type Department Care Team (Late st Contact Info) Description 09/17/2022 ElementsLocal Message Enc [facility] - [facility] [address] [place], [place] [address] [employer], [facility] Provider Air Quality Message Social History Tobacco Use Types Packs/Day Years [...] Sex Assigned at Female 04/16/2024 10:05 AM GARDENER FLORIST Legal Sex Female 11:50 AM CDT Gender Identity Not on file Sexual Orientation Not on file COVID-19 Exposure Response Date Recorded In the last 10 days, have yo u been in contact with someone who was confirmed or suspected to have Coronavirus/COVID-19? No / Unsure 08/26/2022 8:54 AM CDT documented as of this encounter Plan of Treatment Upcoming Encounters Date Type Department Care Team (Latest Contact Info) Description 12/19/2024 7:40 AM CDT Office Visit [facility] Family and Sports Medicine - [place] [address] [place] [phone] Lilly Boone APNP [address] [place] [address] 01/12/2025 10:00 AM CDT Office Visit [facility] [place] [address] [place] [address] Yung Barnes MD Three [facility] [address] [place] [address] 05/25/2025 8:00 AM GARDENER FLORIST Hospital Encounter [facility] [place] [address] Rush Ferrari MD 3 [facility] [address] [place] [address] 05/25/2025 8:00 AM GARDENER FLORIST - 05/25/2025 8:30 AM GARDENER FLORIST Surgery [facility] End[place] [address] Rush Ferrari MD 3 [facility] [address] [place] [address] COLONOSCOPY SCREENING Scheduled Procedures Name Priority Associated Diagnoses Date/Ti me COLONOSCOPY SCREENING Colon cancer screening 05/25/2025 8:00 AM GARDENER FLORIST documented as of this encounter Visit Diagnoses Not on filedocumented in this encounter Additional Health Concerns Assessment Noted Time PHQ-9 Depression Total Score: 0 11/28/19 22 8:27 AM CDT documented as of this encounter Care Teams Document Control Clerk Relationship Specialty Start Date End Date Lilly Boone APNP [address] [place] [address] PCP - General NURSE PRACTITIONER 04/09/18 Denis Wilder MD 3 [facility] [address] [place] [phone] [place] Meat Hostess CARDIOVASCULAR DISEASE 04/09/18 documented as of this encounter
--- OUTSIDE RECORDS SUMMARY | 2024-10-31 02:23 | XMS_ITS | Encounter Summary ---
Author Organization [facility] Address [address] [place] [address] Care Team Providers Care Director Data Management Name Role Phone Lilly Boone Primary Care Provider [phone] Denis Wilder MD Unavailable [phone] Encounter Details Date Type Department Care Team (Late st Contact Info) Description 06/16/2024 OneMln Message Enc [facility] Medical [facility] Family and Sports Medicine - [place] [address] [place] [address] [facility] Provider test result Social History Tobacco Use Types Packs/Day Years [...] Sex Assigned at Female 04/16/2024 10:05 AM ADMINISTRATIVE LAW JUDGE Legal Sex Female 11:50 AM CDT Gender Identity Not on file Sexual Orientation Not on file documented as of this encounter Plan of Treatment Upcoming Encounters Date Type Department Care Team (Latest Contact Info) Description 12/19/2024 7:40 AM CDT Office Visit [facility] Family [facility] Sports Medicine - [place] [address] [place] [address] Lilly Boone APNP [address] [place] [address] 01/12/2025 10:00 AM CDT Office Visit [facility], [place] [address] [place] [address] Yung Barnes MD Three [facility] [address] [place] [address] 05/25/2025 8:00 AM ADMINISTRATIVE LAW JUDGE Hospital Encounter [facility] [place] [address] Rush Ferrari MD 3 [facility] [place] [address] [place] [address] 05/25/2025 8:00 AM ADMINISTRATIVE LAW JUDGE - 05/25/2025 8:30 AM ADMINISTRATIVE LAW JUDGE Surgery [facility] [place]o/[place] [address] Rush Ferrari MD 3 [facility] [place] [place] [address] COLONOSCOPY SCREENING Scheduled Procedures Name Priority Associated Diagnoses Date/Ti me COLONOSCOPY SCREENING Colon cancer screening 05/25/2025 8:00 AM ADMINISTRATIVE LAW JUDGE documented as of this encounter Visit Diagnoses Not on filedocumented in this encounter Additional Health Concerns Assessment Noted Time PHQ-9 Depression Total Score: 1 12/16/19 8:16 AM CDT documented as of this encounter Care Teams Director Data Management Relationship Specialty Start Date End Date Lilly Boone APNP [address] [place] [address] PCP - General NURSE PRACTITIONER 04/09/18 Denis Wilder MD 3 [facility] [address] [place] [address] [facility] Food Service Worker CARDIOVASCULAR DISEASE 04/09/18 documented as of this encounter
--- OUTSIDE RECORDS SUMMARY | 2024-10-31 02:23 | XMS_ITS | Encounter Summary ---
Author Organization [facility] Address [address] [place] [address] Care Team Providers Care Shampoo Person Name Role Phone Lilly Boone Primary Care Provider [phone] Denis Wilder MD Unavailable [phone] Encounter Details Date Type Department Care Team (Late st Contact Info) Description 07/25/2024 Cognition Therapeuticst Message Enc [facility] Medical [facility] Family and Sports Medicine [place] [address] [place] [address] Lilly Boone APNP [address] [place] [address] Discount Card Social History Tobacco Use Types Packs/Day Years [...] Sex Assigned at Female 04/16/2024 10:05 AM FISH BUTCHER Legal Sex Female 11:50 AM CDT Gender Identity Not on file Sexual Orientation Not on file documented as of this encounter Plan of Treatment Upcoming Encounters Date Type Department Care Team (Latest Contact Info) Description 12/19/2024 7:40 AM CDT Office Visit [facility] Group Family and Sports Medicine - [place] [address] [place] [address] Lilly Boone APNP [address] [place] [address] 01/12/2025 10:00 AM CDT Office Visit [facility], [place] [address] [place] [address] Yung Barnes MD Three [facility] [address] [place] [address] 05/25/2025 8:00 AM FISH BUTCHER Hospital Encounter [facility] [place] [address] Rush Ferrari MD 3 [facility] [address] [place] [address] 05/25/2025 8:00 AM FISH BUTCHER - 05/25/2025 8:30 AM FISH BUTCHER Surgery [facility] Endo/[place] [address] Rush Ferrari MD 3 [facility] [address] [place] [address] COLONOSCOPY SCREENING Scheduled Procedures Name Priority Associated Diagnoses Date/Ti me COLONOSCOPY SCREENING Colon cancer screening 05/25/2025 8:00 AM FISH BUTCHER documented as of this encounter Visit Diagnoses Not on filedocumented in this encounter Additional Health Concerns Assessment Noted Time PHQ-9 Depression Total Score: 1 12/16/19 8:16 AM CDT documented as of this encounter Care Teams Shampoo Person Relationship Specialty Start Date End Date Lilly Boone APNP [address] [place] [address] PCP - General NURSE PRACTITIONER 04/09/18 Denis Wilder MD 3 [facility] [address] [place] [phone] [place] Contracting Manager CARDIOVASCULAR DISEASE 04/09/18 documented as of this encounter
--- OUTSIDE RECORDS SUMMARY | 2024-10-31 02:23 | XMS_ITS | Clinical Summary ---
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 Gender Identity Not on file Sexual Orientation Not on file Plan of Treatment Health Maintenance Due Date Last Done Comments Hepatitis C Virus (HCV) Screening 1965 Hepatitis B Immunization (1 of 3 - 19+ 3-dose series) 11/16/1986 Pap Smear 11/16/1988 Cervical Cancer Screening (CCS) 11/16/1997 HPV/Cotest 11/16/1997 Cologuard 11/16/2012 Colonoscopy 11/16/2012 Colorectal Cancer Screening 11/16/2012 Immunochemical Fecal Occult Blood 11/16/2012 Pneumococcal Immunization (50+ years) (1 of 1 - PCV) 11/16/2017 Zoster Immunization (1 of 2) 11/16/2017 SARS-COV-2 Immunization (1 - season) 2023 Influenza Immunization (#1) 2024 01/30/2014 Respiratory Syncytial Virus (RSV) Immunization (Adult) (1 - 1-dose 75+ series) 11/16/2042 DTaP/Tdap/Td Immunization Discontinued 2018, 04/26/1993, 10/22/1969, Additional history exists TdaP Immunization Completed 08/23/2018 Human Papillomavirus (HPV) Immunization Aged Out No longer eligible based on patient's age to complete this topic Meningococcal Immunization (ACWY) Aged Out No longer eligible based on patient's age to complete this topic Rotavirus Immunization Aged Out No lo nger eligible based on patient's age to complete this topic
--- OUTSIDE RECORDS SUMMARY | 2024-10-31 02:24 | XMS_ITS | Encounter Summary ---
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 Gender Identity Not on file Sexual Orientation Not on file documented as of this encounter Plan of Treatment Not on file documented as of this encounter Visit Diagnoses Not on filedocumented in this encounter Additional Health Concerns Infection Onset Date Last Indicated Resolved Time COVID: Suspected 10/18/2022 10/18/2022 10/18/2022 11:19 AM CDT COVID: Suspected 10/18/2022 10/18/2022 10/18/2022 11:18 PM CDT COVID: Suspected 04/15/2023 04/15/2023 04/15/2023 6:14 PM MAT MACHINE OPERATOR Influenza, adult 04/15/2023 04/15/2023 04/22/2023 3:05 AM MAT MACHINE OPERATOR documented as of this encounter Care Teams Wild Life Manager Relationship Specialty Start Date End Date Lilly Boone NP PCP - General Nurse Practitioner 10/05/19 documented as of this encounter
--- OUTSIDE RECORDS SUMMARY | 2024-10-31 02:24 | XMS_ITS | Encounter Summary ---
Author Organization [facility] Address [facility] [place] [address] Care Team Providers Care Licensed Dispensing Optician Name Role Phone AndersonLilly coates ROBIN Primary Care Provider [phone] Denis Wilder MD Unavailable [phone] Encounter Details Date Type Department Care Team (Late st Contact Info) Description 10/03/2019 Abstract [facility] at [facility], [address] [address] Kenny Lea [place] Social History Tobacco Use [...] Sex Assigned at Female 04/16/2024 10:05 AM TOWN MARSHAL Legal Sex Female 11:50 AM CDT Gender Identity Not on file Sexual Orientation Not on file COVID-19 Exposure Response Date Recorded In the last month, have you been in contact with someone who was confirmed or suspected to have Coronavirus / COVID-19? No / Unsure 09/16/2019 2:19 PM CDT documented as of this encounter Plan of Treatment Upcoming Encounters Date Type Department Care Team (Latest Contact Info) Description 12/19/2024 7:40 AM CDT Office Visit [facility] Family and Sports Medicine - [place] [address] [place] [address] Lilly Boone APNP [address] [place] [address] 01/12/2025 10:00 AM CDT Office Visit [facility], [place] [address] [place] [address] Yung Barnes MD Three [facility] [address] [place] [address] 05/25/2025 8:00 AM TOWN MARSHAL Hospital Encounter [facility] [place] [address] Rush Ferrari MD 3 [facility] [place] [place] [address] 05/25/2025 8:00 AM TOWN MARSHAL - 05/25/2025 8:30 AM TOWN MARSHAL Surgery [facility] [place]o/[place] [address] Rush Ferrari MD 3 [facility] [place] [address] [place] [address] COLONOSCOPY SCREENING Scheduled Procedures Name Priority Associated Diagnoses Date/Ti me COLONOSCOPY SCREENING Colon cancer screening 05/25/2025 8:00 AM TOWN MARSHAL documented as of this encounter Procedures Procedure Name Priority Date/Time Associated Diagnosis Comments COMPREHENSIVE METABOLIC PANEL Routine 09/30/2019 LIPID PANEL Routine 09/30/2019 documented in this encounter Results * LIPID PANEL (09/30/2019) CHOLESTEROL 112 100 - 199 HDL 46 >39 TRIGLYCERIDES 70 0 - 149 LDL (CALCULATED) 52 0 - 99 09/30/2019 us Doc [facility] Final Result * (ABNORMAL) COMPREHENSIVE METABOLIC PANEL (09/30/2019) SODIUM S/P/B 141 POTASSIUM S/P/B TNP Comment:specimen improperly centeifuged CO2 23 CHLORIDE S/P/B 103 GLUCOSE TNP mg/dL Comment:specimen improperly centrifuged CALCIUM S/P/B 9.5 BUN 12 CREATININE S/P/B 0.68 0.5 - 1.0 EGFR AFR. AMER. 117(A) <=90 EGFR NON-AFR. AMER. 102(A) <=90 ALKALINE PHOSPHATASE S/P/B 118 ALT 14 AST 12 BILIRUBIN TOTAL S/P/B 0.4 ALBUMIN S/P/B 4.5 3.5 - 5.0 TOTAL PROTEIN S/P/B 7.3 GLOBULIN 2.8 09/30/2019 us Doc [facility] Edited Resul t - Final documented in this encounter Visit Diagnoses Not on filedocumented in this encounter Additional Health Concerns Assessment Noted Time PHQ-9 Depression Total Score: 0 09/16/19 20 3:42 PM CDT documented as of this encounter Care Teams Licensed Dispensing Optician Relationship Specialty Start Date End Date Lilly Boone APNP [address] [place] [address] PCP - General NURSE PRACTITIONER 04/09/18 Denis Wilder MD 3 [facility] [address] [place] [address] [place] Handling Tech CARDIOVASCULAR DISEASE 04/09/18 documented as of this encounter
--- OUTSIDE RECORDS SUMMARY | 2024-10-31 02:24 | XMS_ITS | Encounter Summary ---
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
--- NOTE | 2024-10-31 07:50 | P.HP_ITS ---
History of Present Illness History of Present Illness Consent: Risks, benefits, and alternatives have been discussed and questions answered. Patient agrees to proceed with procedure. Chief complaint: post menopausal bleeding Narrative: Elvia Tran is a 58 year old female with postmenopausal bleeding. Pelvic ultrasound was performed and revealed a 9mm endometrium. In addition the patient had several fibroids. It was recommended to undergo D&C hysteroscopy for further evaluation. Risks of infection, bleeding, perforation, and possible pathology were reviewed. It was discussed that if the fibroids are present but not blocking the view of the endometrium they would be left in place. Due to the patient's prior endometrial ablation was also cyst discussed that it is possible to not be able to enter the endometrial cavity. Patient was given Cyt otec to take 1 week prior to the procedure to help with entry. Patient voices understanding and agrees to proceed Review of Systems Review of Systems: not repeated day of surgery; patient states no changes in status PMFSH Past Medical History Medical History (Updated 10/31/24 @ 07:55 by Ramila Rivas MD) (normal spontaneous vaginal delivery) Asthma Gout GERD (gastroesophageal reflux disease) Diabetes type 2, controlled Atrial fibrillation Hyperlipidemia Hypertension Surgical History Surgical History (Updated 10/31/24 @ 07:53 by Ramila Rivas MD) Status post hysteroscopic ablation of endometrium Status post cervical spinal fusion Status post laparoscopic cholecystectomy Status post tonsillectomy Status post myomectomy X2 Family History Family History Sibling Patient's brother is in good health Family history of gynecological problem Mother Family history of arthritis Social History Social History (System 04/20/19 @ 13:08 by Guillermina Erickson) Smoking status: Never smoker Alcohol intake: never Living arrangements: alone Meds Home Medications and Allergies Home Medications ?Medication ?Instructions ?Recorded ?Confirmed ?Type amlodipine 10 mg tablet 10 mg PO DAILY 03/20/22 10/20/24 History blood sugar diagnostic (One[facility] 03/20/22 03/20/22 History Ultra Test strips) fluticasone 100 mcg-salmeterol 50 See Rx Instructions .Route .COMPLEX 03/20/22 10/20/24 History mcg/dose blistr powdr for inhalation (Advair Diskus) lancets 33 gauge (One[facility] Delica 12/29/22 12/29/22 History Plus Lancet) metformin 1,000 mg tablet 1,000 mg PO BID 03/20/22 10/20/24 History metoprolol tartrate 25 mg tablet 25 mg PO DAILY 03/20/22 10/20/24 History dulaglutide 3 mg/0.5 mL 3 mg subcut WEEKLY 10/20/24 10/20/24 History subcutaneous pen injector (Trulicity) Allergies Allergy/AdvReac Type Severity Reaction Status Date / Time lisinopril Allergy Severe Anaphylactic Verified 10/20/24 09:29 Shock Penicillins Allergy Unknown Other Verified 10/20/24 09:29 Exam Const: General: healthy appearing and alert Orientation/consciousness: patient oriented x3 Resp: Effort & Inspection: normal respiratory effort : External Female Exam: normal external appearance Speculum Exam - Vagina: normal appearance of the vagina and normal vaginal discharge Speculum Exam - Cervix: normal appearance of the cervix Bimanual exam- vagina & uterus: uterine size normal and consistency normal Bimanual Exam- Adnexa, other: normal adnexae and No adnexal tenderness Neuro: General: patient oriented x3 Assessment and Plan Assessment and plan (1) Post-menopausal bleeding: Code(s): N95.0 - Postmenopausal bleeding Status: Acute Assessment and Plan: Plan to proceed with D&C hysteroscopy
--- NOTE | 2024-10-31 07:50 | WPDHPUPDATE1 ---
History and Physical Update Update Date/Time: 10/31/24 07:50 History and Physical has been reviewed, including an updated exam of the patient. There are NO changes in the patient's condition. Risks, benefits, and alternatives have been discussed and questions answered. Patient agrees to proceed with procedure.
--- NOTE | 2024-10-31 07:51 | P.PNAN_ITS ---
Anes - Initial Pre Proc Eval Procedure: Operation Date: 10/31/24 09:45 Proposed Procedures p Hysteroscopy Dilation and Curettage - Ramila Rivas MD Date/Time: 10/31/24 07:51 Surgeon: Ramila Rivas MD Pre Op Diagnosis: post menopausal bleeding Patient Data Age: 58 Gender: F Height: 1.63 m Weight: 83 kg Allergies Allergy/AdvReac Type Severity Reaction Status Date / Time lisinopril Allergy Severe Anaphylactic Verified 10/20/24 09:29 Shock Penicillins Allergy Unknown Other Verified 10/20/24 09:29 Home Medications ?Medication ?Instructions ?Recorded ?Confirmed ?Type amlodipine 10 mg tablet 10 mg PO DAILY 03/20/22 10/20/24 [facility]/20/[facility] 03/20/22 History Ultra Test strips) fluticasone 100 mcg-salmeterol 50 See Rx Instructions .Route .COMPLEX 03/20/22 10/20/24 History mcg/dose blistr powdr for inhalation (Advair Diskus) [facility] 03/20/22 03/20/22 History Plus Lancet) metformin 1,000 mg tablet 1,000 mg PO BID 03/20/22 10/20/24 History metoprolol tartrate 25 mg tablet 25 mg PO DAILY 03/20/22 10/20/24 History dulaglutide 3 mg/0.5 mL 3 mg subcut WEEKLY 10/20/24 10/20/24 History subcutaneous pen injector (Trulicity) Patient hx anesthesia problems: none Family hx anesthesia problems: none Results Review: All pre-operative results and documents have been reviewed as part of the pre- operative evaluation. [facility] Past Medical History Medical History (Updated 10/31/24 @ 07:55 by Ramila Rivas MD) (normal spontaneous vaginal delivery) Asthma Gout GERD (gastroesophageal reflux disease) Diabetes type 2, controlled Atrial fibrillation Hyperlipidemia Hypertension Surgical History Surgical History (Updated 10/31/24 @ 07:53 by Ramila Rivas MD) Status post hysteroscopic ablation of endometrium Status post cervical spinal fusion Status post laparoscopic cholecystectomy Status post tonsillectomy Status post myomectomy X2 Family History Family History Sibling Patient's brother is in good health Family history of gynecological problem Mother Family history of arthritis Social History Social History (System 04/20/19 @ 13:08 by Guillermina Erickson) Smoking status: Never smoker Alcohol intake: never Living arrangements: alone Anes - Eval Final PreProcedure Day of Procedure 10/31/24 07:51 Patient weight: obese Heart: regular rate and rhythm Lungs: clear to auscultation Airway: Mallampati scale class II Neurological: alert and oriented Last oral intake: >/= 8 hours ASA classification: III Emergent: no Anesthetic plan: proceed Anesthesia type and monitoring: general GIVS and standard monitoring Results Review: All pre-operative results and documents have been reviewed as part of the pre- operative evaluation. Informed Consent: The patient's anesthetic plan and its attendant risks and benefits were discus sed with the patient/family/POA. Questions were solicited and answers provided to the satisfaction of the patient/family/POA.
[2024-10-31 08:30] VITALS: BP 131/80; PULSE 87; TEMP 36.2; O2SAT 90; BMI 32.0
[2024-10-31] MEDS: LACTATED RINGERS 1,000 ML 30 ML IV CONT (08:30)
[2024-10-31] MEDS: ACETAMINOPHEN 500 MG TABLET 1000 MG PO (08:30)
[2024-10-31 08:41] LABS: Anion Gap 10 mmol/L (4-12); Blood Urea Nitrogen 13 mg/dL (7-17); Calcium 9.2 mg/dL (8.4-10.2); Carbon Dioxide 24 mmol/L (22-30); Chloride 104 mmol/L (98-107); Estimated CRCL calculation 94 ml/min; Estimated Glomerular Filt Rate > 60; Glucose 106 mg/dL (65-110); Potassium 4.5 mmol/L (3.4-5.0); Sodium 138 mmol/L (137-145)
[2024-10-31] MEDS: KETOROLAC 30 MG/ML VIAL (*BKC) IV PUSH (09:45)
[2024-10-31 10:00] VITALS: BP 131/81; PULSE 85; RESP 12; O2SAT 98
--- NOTE | 2024-10-31 10:04 | P.OP_ITS ---
Procedure Note - Detailed Date of Procedure 10/31/24 Pre-op Diagnosis post menopausal bleeding Post-op Diagnosis Same Procedure Performed D&C hysteroscopy with myomectomy Surgeon Ramila Rivas MD Anesthesia MAC Findings External cervix is completely scarred shut. Internal os is stenotic. Uterus sounds to 7cm. The endometrium reveals multiple fibroids that are blocking the view behind them. The endometrium appears atrophic with no other lesions. Description of Procedure The patient was taken to the operating room and placed under anesthesia in the dorsal lithotomy position. She was prepped and draped in the usual sterile fashion. The bivalve speculum was placed in the vagina and the cervix grasped on the anterior lip with a tenaculum. The external os is very stenotic. Unable to advance the sound, dilator, or os finder. The scalpel was used to jenniffer- cross the os with thick mucus return. The internal os is then encountered and noted to be stenotic. The 3/4 Hegar dilator was used and able to enter. The uterus was then sounded to 7cm. The diagnostic hysteroscope was placed with the above-stated findings. Due to the fibroids blocking the view behind the the were excised using the flex Aveta resection blade. Once complete visualization of the endometrium was able to be performed there are no additional lesions noted. The endometrium appears very atrophic. The hysteroscope was removed and the sharp curette used to curette the endometrium until a good uterine cry was noted in all areas. All instruments were then removed. Sponge, needle, and instrument counts are correct per the OR staff. The patient was awakened from anesthesia and taken to recovery in stable condition. Estimated Blood Loss 5 Drains No Packing No Pathology Yes (Endometrial shavings and curettings) Complications No immediate complications Condition Stable Disposition PACU
--- NOTE | 2024-10-31 10:04 | S_PTH ---
PATIENT: Elvia Tran LOC: [facility] U#:[id number] AGE/SX: 58/F ROOM: RE10/31/[address]: Ramila Rivas MD : 1965 BED: DIS: 10/31/2024 SPEC #: [id number] RECD: 10/31/24 10:27 STATUS: LUCAS REQ #: [id number] MIKE: 10/31/24 10:[address]: Ramila Rivas DEPT: [facility] Surgical RECD BY: Edwige Fair ENTERED: 10/31/24 10:27 SP TYPE: Surgical OTHR DR: Lilly Boone, SNUBBER Tissues: A - Endometrial Curettings Procedures: Hematoxylin and Eosin Stain Gross and Microscopic Level 4
[2024-10-31 10:30] VITALS: BP 136/83; PULSE 83; O2SAT 100
[2024-10-31 10:45] VITALS: BP 149/81; PULSE 89
[2024-10-31 11:15] VITALS: BP 133/89; PULSE 85
== END 2024-10-31 11:20 | disposition home or self-care (01) ==
PROVIDERS: Anesthesiology; PCP Nurse Practitioner; Visit Provider Obstetrics & Gynecology Gynecology
PROC: 0U5B8ZZ Destruction of Endometrium, Via Natural or Artificial Opening Endoscopic (ICD-10-PCS; CPT 58563; principal; 2024-10-31 09:45)
DX: N85.8 Other specified noninflammatory disorders of uterus (principal); D25.0 Submucous leiomyoma of uterus; E78.5 Hyperlipidemia, unspecified; I10 Essential (primary) hypertension; J45.909 Unspecified asthma, uncomplicated; K21.9 Gastro-esophageal reflux disease without esophagitis; E11.9 Type 2 diabetes mellitus without complications; I48.91 Unspecified atrial fibrillation; E66.9 Obesity, unspecified; Z68.32 Body mass index [BMI] 32.0-32.9, adult; Z79.84 Long term (current) use of oral hypoglycemic drugs; Z79.85 Long-term (current) use of injectable non-insulin antidiabetic drugs; Z79.51 Long term (current) use of inhaled steroids; Z98.890 Other specified postprocedural states; Z98.1 Arthrodesis status; Z90.49 Acquired absence of other specified parts of digestive tract
CPT/HCPCS: 58561; 36415; 80048; 82948; 88305; A9270; J1885; J2003; J2250; J2704; J3010; J7120